=== PATIENT | female | born 1960 | race Caucasian/White ===

== ENCOUNTER 2023-03-22 21:20 | Inpatient (IN) | payer MEDICARE, OTHER, SELFPAY ==
[2023-03-22 15:09] VITALS: BMI 35.8
[2023-03-22 15:15] VITALS: BP 107/52
--- NOTE | 2023-03-22 15:22 | ED.GENMED ---
History of Present Illness
General
Chief Complaint: Vaginal Bleeding
Source: patient
Exam Limitations: none
Time Seen by Provider: 03/22/23 15:20
History of Present Illness
History of Present Illness:
62-year-old female presents from [facility] with complaints of vaginal bleeding. Patient has a history of uterine cancer that was treated. She is status post hysterectomy. She notes a pressure in the lower abdomen that feels
like right before she urinates and when she urinates she passes clots and large amount of blood. No fever. She has a history of UTIs and cystitis. The pain in the lower abdomen is both sides does not radiate to the back. No vomiting. She is an
insulin-dependent diabetic. She is on Brilinta. She is never been here before.
Phy Exam
Physical Exam
Physical Exam:
General: Well-appearing female no acute respiratory distress
HEENT: Normocephalic atraumatic
Heart: Regular rate and rhythm no murmurs
Lungs: Clear to auscultation bilaterally no wheezing
exam: There is clots noted in the diaper. No active vaginal bleeding. No active bleeding noticed otherwise.
Extremities: Bilateral lower extremities with below the knee amputations.
Abdomen is soft nontender nondistended no guarding rebound normal bowel sounds
Course
Orders/Labs/Results
Orders:
Orders
03/22/23 15:30
Bladder Scan- Treatment ONCE
03/22/23 15:31
CT Abd/pel Without Iv Or Oral Urgent
Comment:
Reason For Exam: hematuria
03/22/23 15:46
Complete Blood Count/With Diff Urgent
Comprehensive Metabolic Panel Urgent
PTT Urgent
Prothrombin Time Urgent
03/22/23 15:48
Tramadol HCl [Ultram] 50 mg PO NOW STA
03/22/23 16:37
Urinalysis Reflex To Culture Urgent
Date Specimen was Collected: 03/22/23
Time Specimen was Collected: 16:36
Urine Microscopic Reflex Cult Urgent
03/22/23 18:31
CBI- Treatment PRN
Solution: saline
Irrigate to Clear?: Yes
Abnormal Lab Results
03/22/23 03/22/23
15:46 16:37
RBC 3.42 L 10^6/uL
(4.20-5.40)
Hgb 10.2 L g/dL
(12.0-16.0)
Hct 30.6 L %
(37.0-47.0)
MPV 10.6 H fL
(7.4-10.4)
Abs Immat Gran (auto) 0.1 H 10^3/uL
(0-0.05)
Absolute Neuts (auto) 6.8 H 10^3/uL
(1.4-6.5)
Immature Gran % 0.6 H %
(0-0.5)
Lymphocytes % 16.9 L %
(20.5-51.1)
Sodium 132 L mmol/L
(135-145)
Chloride 96 L mmol/L
(98-107)
BUN 19 H mg/dl
(7-17)
Glucose 282 H mg/dl
(70-99)
Albumin 3.4 L g/dl
(3.5-5.0)
Urine Ketones Trace A
(Negative)
Ur Occult Blood Reflex 4+ A
(Negative)
Urine RBC >100 A /HPF
(0-2)
Urine Glucose Trace A
(Negative)
Urine Albumin (Reflex) 3+ A
(Neg - Trace)
03/22/23 15:46
03/22/23 15:46
Vital Signs
Initial and Last Documented VS:
Initial Vital Signs
Temp Pulse Resp BP Pulse Ox
97.8 F 80 14 107/52 97
03/22/23 15:15 03/22/23 15:15 03/22/23 15:15 03/22/23 15:15 03/22/23 15:15
Last Documented Vital Signs
Temp Pulse Resp BP Pulse Ox
97.8 F 80 14 110/63 96
03/22/23 15:15 03/22/23 17:45 03/22/23 17:45 03/22/23 16:00 03/22/23 17:30
MDM/Problems Addressed
Differential Diagnosis Includes:
Patient has urinary symptoms and hematuria. Question possible cystitis versus kidney stone. History of uterine cancer but status post hysterectomy.
Will check labs coags urinalysis and bladder scan. Also performed CT of the abdomen and pelvis
*Critical Care Note
Total Time (30-74mins, 75-104mins- exclusive of procedures): Not Applicable
Update Note
Update Note:
CT was negative for acute finding. Patient continued to pass clots while here. Discussed findings with urology. There is no infection in the urine that is visible. Given ongoing passage of clots, urology recommended CBI and admission for
possible cystoscopy in the morning
ED Attending Note
-
Portions of this chart may have been created with voice recognition software.� Occasional wrong word or��sound alike� substitutions may have occurred due to the inherent limitations of voice recognition software.
Discharge Plan
Departure
Patient Disposition: Admit
Date of Disposition: 03/22/23
Time of Disposition: 19:33
Admit to: Med/Surg
Presentation/result/management discussed w/ accepting MD/DO: Hospitalist
Discharge Problem:
Hematuria
Prescriptions:
No Action
sennosides [senna] 8.6 mg Tablet
17.2 mg PO HS
acetaminophen [Tylenol] 325 mg Tablet
650 mg PO Q6HPRN PRN (Reason: mild pain)
polyethylene glycol 3350 [Miralax] 17 gram Powder In Packet
17 g PO [id number] PRN (Reason: CONSTIPATION)
gabapentin 400 mg Capsule
800 mg PO TID
sertraline 100 mg Tablet
100 mg PO DAILY
loperamide 2 mg Tablet
2 mg PO Q6HPRN PRN (Reason: diarrhea)
dextromethorphan-guaifenesin [Tussin DM] 10-100 mg/5 mL Syrup
10 ml PO Q4HPRN PRN (Reason: COUGH)
tramadol 50 mg Tablet
50 mg PO Q6HPRN PRN (Reason: SEVERE PAIN)
zinc oxide 20 % Ointment
1 applic TOPICAL TID
magnesium hydroxide [Milk of Magnesia] 400 mg/5 mL Suspension
2,400 mg PO [id number] PRN (Reason: if no bm by 3rd day)
bisacodyl [Dulcolax (bisacodyl)] 10 mg Suppository
10 mg WA DAILYPRN PRN (Reason: if no bm aftr mom)
ferrous sulfate 325 mg (65 mg iron) Tablet
325 mg PO DAILY
metformin 1,000 mg Tablet
1,000 mg PO BID
Fleet Enema 19-7 gram/118 mL Enema
118 ml WA DAILYPRN PRN (Reason: if no bm aftr dulcolax)
docusate sodium [Colace] 100 mg Capsule
200 mg PO DAILY
aspirin 81 mg Tablet,Chewable
81 mg PO DAILY
vitamin B complex [B Complete] Tablet
1 tab PO DAILY
levothyroxine [Synthroid] 200 mcg Tablet
200 mcg PO DAILY
lisinopril 2.5 mg Tablet
2.5 mg PO DAILY
insulin lispro [Humalog KwikPen Insulin] 100 unit/mL Insulin Pen
4 unit SC AC
magnesium L-lactate 84 mg Tablet Extended Release
168 mg PO BID
duloxetine [Cymbalta] 60 mg Capsule,Delayed Release(Dr/Ec)
60 mg PO DAILY
omeprazole 20 mg Tablet,Delayed Release (Dr/Ec)
20 mg PO DAILY
cholecalciferol (vitamin D3) [Vitamin D3] 50 mcg (2,000 unit) Capsule
50 mcg PO DAILY
Brilinta 90 mg Tablet
90 mg PO BID
Referrals:
Connor Mcmillan DO [Family Provider] -
Interventions
Interventions:
*Risk Screen - Suicide Last Done: 03/22/23 15:24
*Neglect/Abuse Screening Last Done: 03/22/23 15:24
ED- Fall Risk Assessment Last Done: 03/22/23 15:27
ED-Female Genitourinary Assessment Last Done: 03/22/23 16:03
[2023-03-22 15:52] LABS: % Basophils 0.8 % (0-2); % Eosinophils 4.2 % (0-6); % Immature Granulocytes 0.6 % (0-0.5); % Lymphocytes 16.9 % (20.5-51.1); % Neutrophils 71.5 % (42.2-75.2); Absolute Basophils 0.1 10^3/uL (0-0.2); Absolute Eosinophils 0.4 10^3/uL (0-0.7); Absolute Immature Granulocytes 0.1 10^3/uL (0-0.05); Absolute Lymphocytes 1.6 10^3/uL (1.2-3.4); Absolute Monocytes 0.6 10^3/uL (0.1-0.6); Absolute Neutrophils 6.8 10^3/uL (1.4-6.5); Hematocrit 30.6 % (37.0-47.0); Hemoglobin 10.2 g/dL (12.0-16.0); Mean Corp Hgb Conc. 33.3 g/dL (33.0-37.0); Mean Corpuscular Hgb 29.8 pg (27.0-31.0); Mean Corpuscular Volume 89.5 fL (81.0-99.0); Mean Platelet Volume 10.6 fL (7.4-10.4); Nucleated Red Blood Cells % 0 %; Platelet Count 234 10^3/uL (130-400); Red Blood Cell Count 3.42 10^6/uL (4.20-5.40); Red Cell Dist. Width 14.1 % (11.5-14.5); White Blood Cell Count 9.5 10^3/uL (4.8-10.8)
[2023-03-22 16:00] VITALS: BP 110/63
[2023-03-22 16:04] LABS: APTT 28.9 Sec (23.4-35.0); INR 1.08; PT 14.3 Sec (11.4-14.6)
[2023-03-22 16:11] LABS: ALT (SGPT) 14 U/L (0-35); AST (SGOT) 17 U/L (14-36); Albumin 3.4 g/dl (3.5-5.0); Alkaline Phosphatase 110 U/L (38-126); Blood Urea Nitrogen 19 mg/dl (7-17); Calcium 8.5 mg/dl (8.4-10.2); Carbon Dioxide 25 mmol/L (22-30); Chloride 96 mmol/L (98-107); Estimated Creatinine Clearance 108 ml/min; Glucose 282 mg/dl (70-99); Sodium 132 mmol/L (135-145); Total Bilirubin 0.3 mg/dl (0.2-1.3); Total Protein 6.4 g/dl (6.3-8.2); eGFR > 60.00
[2023-03-22] MEDS: ULTRAM 50 MG PO (16:23)
[2023-03-22 16:45] LABS: Urine Albumin 3+ (Neg - Trace); Urine Bilirubin Negative (Negative); Urine Character Bloody (Clear); Urine Color Red; Urine Glucose Trace (Negative); Urine Ketone Trace (Negative); Urine Leukocyte Negative (Negative); Urine Nitrite Negative (Negative); Urine Occult Blood 4+ (Negative); Urine Urobilinogen Negative (Neg - 1+)
[2023-03-22 17:01] LABS: Urine Red Blood Cell >100 /HPF (0-2)
--- NOTE | 2023-03-22 20:27 | HPS.HSE ---
Family Physician
-
Family Physician: Connor Mcmillan, DO
Chief Complaint
-
Recurrent gross hematuria
History of Present Illness
Very pleasant 68-year-old female with multiple comorbidities including diabetes and peripheral vascular disease status bilateral below-knee amputation and recurrent hematuria. Transferred to the hospital from [facility] as was recently
discharged back from [place] from her second visit to [place] for recurrent gross hematuria.
Other workup today and initially they been limited on the UTI and treated and discharged but now having another episode and did not want to go back to [place].
Admit the hematuria is painless, denies any weight change, no pyuria admit occasional pressure sensation suprapubic.
No fever or chill or cough or congestion, no changes stool color, no fresh rectal bleed or nausea or vomiting or hematemesis.
She takes aspirin and Brilinta for peripheral vascular disease and stent placed in the left carotid 4 years ago.
She is awake, alert and oriented x 3 and holds appropriate conversation.
Workup in the ER showed gross hematuria, started on CBI and urology contacted and recommended continued CBI and n.p.o. after midnight see planning endoscopy in the morning.
Accompanied by the at the bedside.
Urinalysis showed no evidence of UTI but showed gross hematuria.
Medical History
Past Medical History
Past Medical History: Reports Other
Additional Past Medical History:
Past medical history reviewed:
Diabetes mellitus
Peripheral vascular disease status post bilateral knee amputation as well as stent in the left carotid artery.
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
Ambulatory dysfunction
Hypertension
Mood disorder
GERD
Surgical history:
Bilateral below-knee amputation
Left carotid artery stenting.
Social history: Been [facility] and another [facility] for the last year and a half, denies smoking alcohol use.
Family history: Positive for diabetes, hypertension, coronary artery disease
Past Surgical History: Reports Other
Social History
Unable to obtain full social history at this time due to: Other
Employment: Other
Family History
Family History: Other
Allergies / Home Medications
Allergies reflects when Allergies were last updated in [facility].
Home Medications with original date entered in [facility]
Allergy/Medication List:
Allergies
Allergy/AdvReac Type Severity Reaction Status Date / Time
atorvastatin Allergy Unknown Verified 03/22/23 16:01
cefazolin Allergy Unknown Verified 03/22/23 16:01
ciprofloxacin Allergy Unknown Verified 03/22/23 16:01
clindamycin Allergy Unknown Verified 03/22/23 16:01
oxycodone Allergy Unknown Verified 03/22/23 16:01
Home Medications
acetaminophen 325 mg tablet (Tylenol) 650 mg PO Q6HPRN PRN mild pain 03/22/23
aspirin 81 mg chewable tablet 81 mg PO DAILY 03/22/23
bisacodyl 10 mg rectal suppository (Dulcolax (bisacodyl)) 10 mg MI DAILYPRN PRN if no bm aftr mom 03/22/23
cholecalciferol (vitamin D3) 50 mcg (2,000 unit) capsule (Vitamin D3) 50 mcg PO DAILY 03/22/23
dextromethorphan-guaifenesin 10 mg-100 mg/5 mL oral syrup (Tussin DM) 10 ml PO Q4HPRN PRN COUGH 03/22/23
docusate sodium 100 mg capsule (Colace) 200 mg PO DAILY 03/22/23
duloxetine 60 mg capsule,delayed release (Cymbalta) 60 mg PO DAILY 03/22/23
ferrous sulfate 325 mg (65 mg iron) tablet 325 mg PO DAILY 03/22/23
gabapentin 400 mg capsule 800 mg PO TID 03/22/23
insulin lispro 100 unit/mL subcutaneous pen (Humalog KwikPen (U-100) Insulin) 4 unit SC AC 03/22/23
levothyroxine 200 mcg tablet (Synthroid) 200 mcg PO DAILY 03/22/23
lisinopril 2.5 mg tablet 2.5 mg PO DAILY 03/22/23
loperamide 2 mg tablet 2 mg PO Q6HPRN PRN diarrhea 03/22/23
magnesium L-lactate 84 mg tablet,extended release 168 mg PO BID 03/22/23
magnesium hydroxide 400 mg/5 mL oral suspension (Milk of Magnesia) 2,400 mg PO [id number] PRN if no bm by 3rd day 03/22/23
metformin 1,000 mg tablet 1,000 mg PO BID 03/22/23
omeprazole 20 mg tablet,delayed release 20 mg PO DAILY 03/22/23
polyethylene glycol 3350 17 gram oral powder packet (Miralax) 17 g PO [id number] PRN CONSTIPATION 03/22/23
sennosides 8.6 mg tablet (senna) 17.2 mg PO HS 03/22/23
sertraline 100 mg tablet 100 mg PO DAILY 03/22/23
sodium phosphates 19 gram-7 gram/118 mL enema (Fleet Enema) 118 ml MI DAILYPRN PRN if no bm aftr dulcolax 03/22/23
ticagrelor 90 mg tablet (Brilinta) 90 mg PO BID 03/22/23
tramadol 50 mg tablet 50 mg PO Q6HPRN PRN SEVERE PAIN 03/22/23
vitamin B complex 1 tab PO DAILY 03/22/23
zinc oxide 20 % topical ointment 1 applic topical TID GROIN 03/22/23
Review of Systems
-
A 12 point ROS was completed and negative except as noted: Yes
Physical Exam
Vital Signs
Vital Signs
Temp Pulse Resp BP Pulse Ox
97.8 F 80 14 110/63 96
03/22/23 15:15 03/22/23 17:45 03/22/23 17:45 03/22/23 16:00 03/22/23 17:30
physical exam:
General: Awake, alert and oriented x3, not in distress and holds appropriate conversation.
HEENT: Poor dentition no active discharge, ecchymosis or bruising, moist lips, tongue and mucous membrane.
Eyes: No discharge or red conjunctiva, no nystagmus, pupils are reactive and equal
Neck:Supple, no JVD no bruit no goiter.
Respiratory: Normal AP contour and diameter, normal chest wall movement, normal respiratory effort, no respiratory distress,
Lungs: Good air entry bilaterally, no wheezing or rhonchi, no rales or crackles
Heart: S1, S2 regular, normal rate, no added sound.
Gastrointestinal: Positive bowel sounds, soft, nontender, no guarding or rigidity or organomegaly
Musculoskeletal: , no chest wall abnormality or tenderness. All joints and extremities have good range of motion, no muscle tenderness or any joint swelling or tenderness.
Extremities: Bilateral below-knee amputation, stump site clean. No pitting edema, good peripheral pulses, good range of motion
Skin: Warm and dry, no ulceration, normal color.
Neurological: Awake, alert and oriented x3, no facial droop, speech clear and comprehensive, good muscle tone, moves extremities
Psychiatric: Normal mood, normal thought and judgment, normal affect,
Physical Exam
General: Other
Laboratory Results
-
03/22/23 15:46
03/22/23 15:46
Laboratory Results
PT 14.3 Sec (11.4-14.6) 03/22/23 15:46
INR 1.08 03/22/23 15:46
APTT 28.9 Sec (23.4-35.0) 03/22/23 15:46
Total Bilirubin 0.3 mg/dl (0.2-1.3) 03/22/23 15:46
AST 17 U/L (14-36) 03/22/23 15:46
ALT 14 U/L (0-35) 03/22/23 15:46
Alkaline Phosphatase 110 U/L (38-126) 03/22/23 15:46
CT abdomen and pelvis:
1). There are no renal or ureteral calculi. There is no hydronephrosis or hydroureter. The kidneys are normal
2). Cholelithiasis
Data Reviewed
-
CT Scan: Image Personally Visualized and interpreted, Discussed with Patient and Discussed with Family
Lab Data: Labs Reviewed by me, Discussed with Patient and Discussed with Family
Impression/Plan
-
IMPRESSION:
62-year-old female sent from [facility] for recurrent hematuria and this is her third episode, the first 2 she was in [place] other than UTI no other findings appreciated according to the patient and family.
Recurrent gross hematuria, urinalysis showed no evidence of UTI, other causes may need to be considered. No mass seen on the CAT scan.
Hyponatremia
Anemia with hemoglobin around 10.6 with unknown baseline
Hyponatremia sodium 132
Diabetes mellitus on insulin and metformin
Mild protein caloric malnutrition albumin is 3.4
Peripheral vascular disease
Ambulatory dysfunction
PLAN:
Continue CBI for now
Workups reviewed
Hold aspirin and Brilinta as well as stent of the reason for the aspirin Brilinta was stent placed in left carotid was 4 years ago.
Get a urology consult
Urology planning cystoscopy tomorrow therefore keep the patient n.p.o. after midnight
Hold metformin continue insulin with meal
Glucoscan
Recheck lab
We need the records from [place] as she never been here.
Continue her Ultram as usually keep her pain and discomfort controlled while continue senna and Colace.
All discussed with the patient in detail
Discussed with her
CODE STATUS full code
DVT prophylaxis not indicated as she has a below-knee amputation and hold off anticoagulation because of the gross hematuria.
[2023-03-22 21:20] VITALS: BMI 35.8
[2023-03-22 22:11] LABS: Glucose - Point of Care 137 mg/dl (70-99)
[2023-03-22] MEDS: SENOKOT 17.1999999999999993 MG PO (23:48)
[2023-03-22] MEDS: NEURONTIN 800 MG PO (23:48)
[2023-03-22] MEDS: ZINC OXIDE OINTMENT TOPICAL ×2 (23:49→23:55)
[2023-03-23] VITALS (23 sets, daily range): BP systolic 99–137; BP diastolic 54–68; BMI 35.7
[2023-03-23 05:44] LABS: Hematocrit 29.4 % (37.0-47.0); Hemoglobin 9.6 g/dL (12.0-16.0); Mean Corp Hgb Conc. 32.7 g/dL (33.0-37.0); Mean Corpuscular Hgb 30.1 pg (27.0-31.0); Mean Corpuscular Volume 92.2 fL (81.0-99.0); Mean Platelet Volume 11.1 fL (7.4-10.4); Platelet Count 230 10^3/uL (130-400); Red Blood Cell Count 3.19 10^6/uL (4.20-5.40); Red Cell Dist. Width 14.4 % (11.5-14.5); White Blood Cell Count 10.2 10^3/uL (4.8-10.8)
[2023-03-23 05:57] LABS: Blood Urea Nitrogen 23 mg/dl (7-17); Carbon Dioxide 26 mmol/L (22-30); Chloride 97 mmol/L (98-107); Estimated Creatinine Clearance 108 ml/min; Glucose 191 mg/dl (70-99); Magnesium 1.6 mg/dl (1.6-2.3); Potassium 4.2 mmol/L (3.5-5.1); Sodium 134 mmol/L (135-145); eGFR > 60.00
[2023-03-23 06:28] LABS: TSH 0.36 uIU/ml (0.47-4.68)
--- NOTE | 2023-03-23 07:32 | CON.MD ---
Consultation - Medical
-
see dictated note
pt with hx of uterine cancer and subsequent radiation 10 years ago
multiple med problems inlcuding bilateral le amputations
all care thru [facility]
has had hematuria since dec- 2 admits to [facility]- denies any urologic eval- said she had ct's and told they were normal- treated with antibx
brought to ER yesterday from [facility]- no sx's- just again noting blood
ct scan performed- read as normal- but ? bladder base mass vs clot
pt has been on asa and brilinta
currently with 18 uzbek 3 wa- cbi at moderate rate- urine unger- hand irrigated- no clots
plan
continue cbi
hold blood thinners
trend hgb- transfuse prn
plan for cysto at some point mid week after as least partial wash out of brilinta
[2023-03-23 10:41] LABS: Glucose - Point of Care 180 mg/dl (70-99)
[2023-03-23] MEDS: NOVOLOG FLEXPEN-MODERATE RESISTANCE SC (10:41)
[2023-03-23] MEDS: NOVOLOG FLEXPEN SC (10:41)
[2023-03-23] MEDS: NOVOLOG FLEXPEN-MODERATE RESISTANCE 1 UNITS SC ×2 (10:41→17:33)
[2023-03-23] MEDS: NOVOLOG FLEXPEN 4 UNITS SC ×2 (10:42→17:32)
[2023-03-23] MEDS: NEURONTIN 800 MG PO ×3 (10:42→21:56)
[2023-03-23] MEDS: COLACE 200 MG PO (10:42)
[2023-03-23] MEDS: SYNTHROID 200 MCG PO (10:42)
[2023-03-23] MEDS: PROTONIX 40 MG PO (10:42)
[2023-03-23] MEDS: ZESTRIL 2.5 MG PO (10:42)
[2023-03-23] MEDS: CYMBALTA DELAYED RELEASE 60 MG PO (10:42)
[2023-03-23] MEDS: ZINC OXIDE OINTMENT 1 APPLIC TOPICAL ×3 (10:43→21:56)
--- NOTE | 2023-03-23 11:00 | PTCARENOTE ---
pt wakes to name. drowsy. states slight pressure /cramping in abd. cbi in place running with pink and some clots . jon care done.
[2023-03-23] MEDS: VALIUM INJECTION 5 MG IV (12:39)
--- NOTE | 2023-03-23 13:02 | CM ---
CM reviewed medical records. Patient is LTC at [facility]. Plan to return on discharge.
PLAN: [facility], LTC
--- NOTE | 2023-03-23 14:12 | W.PN.HOSP.TC ---
Today's Communication/Plan
-
Advance diet
Continue bladder hydration
Assessment / Plan
Assessment / Plan
62-year-old female with recurrent hematuria, this is her third episode, the first 2 she was seen at [place].
Active issues:
1. Recurrent gross hematuria, urinalysis showed no evidence of UTI, other causes may need to be considered.� No mass seen on the CAT scan.
Patient seen by Urology. Recommendations are:
'continue cbi
hold blood thinners
trend hgb- transfuse prn
plan for cysto at some point mid week after as least partial wash out of brilinta'
2. Hyponatremia - resolved, advance diet
3. Anemia with hemoglobin around 10.6 with unknown baseline
Follow with H/H Q6
4. Diabetes mellitus on insulin and metformin
Hold metformin continue insulin with meals
5. Mild protein caloric malnutrition despite obesity, albumin is 3.4
Encourage nutritional supplements as tolerated
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
6. Peripheral vascular disease - chronic issue
7. Ambulatory dysfunction - PT eval
Continue her Ultram as usually keep her pain and discomfort controlled while continue senna and Colace.
CODE STATUS full code
DVT prophylaxis not indicated, hold off anticoagulation because of the gross hematuria.
Anticipated Discharge: 24 - 48 hours
Subjective/Interval History
-
Date of Service: March 23, 2023
No new problems
Objective Data
-
Labs:
Laboratory Results
03/23/23
05:34
WBC 10.2
Hgb 9.6 L
Hct 29.4 L
Plt Count 230
Sodium 134 L
Potassium 4.2
Chloride 97 L
Carbon Dioxide 26
BUN 23 H
Creatinine 0.6
Glucose 191 H
Calcium 9.0
Vital Signs:
Vital Signs
Temp Pulse Resp BP Pulse Ox
98.3 F 81 18 103/68 100
03/23/23 11:00 03/23/23 14:00 03/23/23 06:11 03/23/23 13:00 03/23/23 14:00
I&O
03/22/23 03/23/23 03/24/23
06:59 06:59 06:59
Output Total 400 / 400 -400 / -400
Balance -400 / -400 400 / 400
Review of Systems
-
History Source: Patient
All other systems: Reviewed and negative
Physical Exam
-
General: Well Developed, Well Nourished, No Apparent Distress, Comfortable and Obese
HEENT: Normocephalic, Atraumatic, Nose Appears Normal and Ears Appear Normal; Negative Good Dentition
Respiratory: Clear to Auscultation
Cardiac: Regular Rhythm and S1/S2
GI: Soft and Nondistended
Musculoskeletal: No Clubbing, No Cyanosis and Other (bilateral amputees)
Skin: Warm and Dry; Negative Rash
Neuro: Awake, Alert and Oriented
Psych: Calm
Data Reviewed
-
Labs: Labs Reviewed by me
[2023-03-23 14:45] LABS: Glycohemoglobin (HgbA1c) 7.5 % (4.0-5.6)
[2023-03-23 15:21] LABS: Hematocrit 27.6 % (37.0-47.0)
[2023-03-23 16:04] LABS: Glucose - Point of Care 181 mg/dl (70-99)
--- NOTE | 2023-03-23 18:32 | PTCARENOTE ---
report sent to floor pt transferred with all belongings.
--- NOTE | 2023-03-23 18:38 | PTCARENOTE ---
Received pt from ED, VSS. CBI with jon draining punch colored urine. Oriented to room, call velasco in reach.
[2023-03-23 20:58] LABS: Hemoglobin 9.2 g/dL (12.0-16.0)
[2023-03-23 21:01] LABS: Glucose - Point of Care 196 mg/dl (70-99)
[2023-03-23] MEDS: SENOKOT 17.1999999999999993 MG PO (21:57)
[2023-03-24 03:08] LABS: Hematocrit 26.3 % (37.0-47.0); Hemoglobin 8.7 g/dL (12.0-16.0); Mean Corp Hgb Conc. 33.1 g/dL (33.0-37.0); Mean Corpuscular Hgb 30.1 pg (27.0-31.0); Platelet Count 201 10^3/uL (130-400); Red Blood Cell Count 2.89 10^6/uL (4.20-5.40); Red Cell Dist. Width 14.1 % (11.5-14.5)
[2023-03-24 03:25] LABS: Blood Urea Nitrogen 16 mg/dl (7-17); Calcium 8.4 mg/dl (8.4-10.2); Carbon Dioxide 27 mmol/L (22-30); Chloride 99 mmol/L (98-107); Estimated Creatinine Clearance 108 ml/min; Glucose 201 mg/dl (70-99); Potassium 3.9 mmol/L (3.5-5.1); Sodium 131 mmol/L (135-145); eGFR > 60.00
[2023-03-24] MEDS: SYNTHROID 200 MCG PO (06:16)
--- NOTE | 2023-03-24 06:48 | W.PN.URO.CBU ---
Today's Communication / Plan
-
continue cbi
track hgb
Assessment / Plan
-
gross hematuria
improved with hand irrigation/cbi and hold of asa and brilinta
hgb down=- pt is chronically anemic- will track and would transfuse as neded
ucx pending- although did not appear to be UTI
as this is pt's 3rd hospital admit for hematuria- 2x at [facility] where it appears no sig urologic eval was performed- i rec continued hospital management with cbi/transfusion and medical optimatization with plan for OR on for
cysto/fulguration and bx with continued hold of both asa and brilinta
risks, benefits, alternatives and disabilities reviewed with patient
Diagnosis
-
Date of Service: March 24, 2023
-
Patient Diagnosis:
gross hematuria
Subjective
-
pt awake and alert
urine almost clear on light drip cbi
slight drop in hgb
Objective
-
Vital Signs
Temp Pulse Resp BP Pulse Ox
98.3 F 83 16 114/61 96
03/23/23 23:47 03/23/23 23:47 03/23/23 23:47 03/23/23 23:47 03/23/23 23:47
Intake and Output
03/22/23 03/23/23 03/24/23
06:59 06:59 06:59
Output Total 400 / 400 400 / 400
Balance -400 / -400 -400 / -400
Output:
True Urine Output from CBI 400 / 400 400 / 400
Laboratory Results
03/24/23 02:54
Review of Systems
-
Constitutional: Fatigue
Respiratory: No Symptoms
Cardiac: No Symptoms
Abdomen/GI: No Symptoms
: Other (jon)
Musculoskeletal: Muscle Stiffness
Physical Exam
-
General -no acute distress
Abdomen - obese, mild distension, nontender
Genitalia - [address]
[2023-03-24 07:15] VITALS: BP 124/57
[2023-03-24 07:57] LABS: Glucose - Point of Care 200 mg/dl (70-99)
[2023-03-24] MEDS: CYMBALTA DELAYED RELEASE 60 MG PO (08:46)
[2023-03-24] MEDS: NEURONTIN 800 MG PO ×3 (08:46→21:14)
[2023-03-24] MEDS: COLACE 200 MG PO (08:47)
[2023-03-24] MEDS: PROTONIX 40 MG PO (08:47)
[2023-03-24] MEDS: NOVOLOG FLEXPEN-MODERATE RESISTANCE 3 UNITS SC ×2 (08:47→17:28)
[2023-03-24] MEDS: ZESTRIL 2.5 MG PO (08:47)
[2023-03-24] MEDS: NOVOLOG FLEXPEN 4 UNITS SC ×2 (08:48→11:36)
[2023-03-24] MEDS: ZINC OXIDE OINTMENT 1 APPLIC TOPICAL ×3 (08:49→21:32)
[2023-03-24 11:26] LABS: Glucose - Point of Care 250 mg/dl (70-99)
[2023-03-24] MEDS: NOVOLOG FLEXPEN-MODERATE RESISTANCE 5 UNITS SC (11:36)
--- NOTE | 2023-03-24 12:04 | W.PN.HOSP.TC ---
Today's Communication/Plan
-
Cont CBI
Trend hgb daily
adjust insulin
Assessment / Plan
Assessment / Plan
62-year-old female with recurrent hematuria, this is her third episode, the first 2 she was seen at [place].
#Recurrent gross hematuria
#Mild acute blood loss anemia 2/2 above
urinalysis showed no evidence of UTI other causes may need to be considered.�
No mass seen on the CAT scan.
asa/brilinta on hold-awaiting washout
Plan for OR
Hgb from 10.2 to 8.7. Unknown baseline
Urology recs
#Hyponatremia - resolved, advance diet
#Diabetes mellitus
Hold metformin
continue insulin with meals increase dose to 5u
A1C 7.5
POC 200
#Mild protein caloric malnutrition
#Peripheral vascular disease - chronic issue
#Ambulatory dysfunction - PT eval
-Continue her Ultram as usually keep her pain and discomfort controlled while continue senna and Colace.
CODE STATUS full code
DVT prophylaxis BKA and unable to do chemical prophylaxis due to gross hematuria
Anticipated Discharge: > 48 hours
Subjective/Interval History
-
Date of Service: March 24, 2023
remains on CBI
urine clear
Objective Data
-
Labs:
Laboratory Results
03/24/23 03/24/23 03/24/23
02:45 02:54 08:45
WBC 9.0
Hgb Cancelled 8.7 L Cancelled
Hct Cancelled 26.3 L Cancelled
Plt Count 201
Sodium 131 L
Potassium 3.9
Chloride 99
Carbon Dioxide 27
BUN 16
Creatinine 0.5 L
Glucose 201 H
Calcium 8.4
Vital Signs:
Vital Signs
Temp Pulse Resp BP Pulse Ox
97.9 F 77 18 124/57 94
03/24/23 07:15 03/24/23 07:15 03/24/23 07:15 03/24/23 07:15 03/24/23 07:15
I&O
03/23/23 03/24/23 03/25/23
06:59 06:59 06:59
Output Total 400 / 400 400 / 400 1600 / 1600
Balance -400 / -400 -400 / -400 -1600 / -1600
Physical Exam
-
General: Well Developed, Well Nourished, No Apparent Distress, Comfortable and Obese
HEENT: Normocephalic, Atraumatic, Nose Appears Normal and Ears Appear Normal; Negative Good Dentition
Respiratory: Clear to Auscultation
Cardiac: Regular Rhythm and S1/S2
GI: Soft, Nontender, Nondistended and Normal Bowel Sounds
Genito-urinary: Continuous Bladder Irrigation
Musculoskeletal: No Clubbing, No Cyanosis and Other (bilateral amputees)
Skin: Warm and Dry; Negative Rash
Neuro: Awake, Alert and Oriented
Psych: Calm
Data Reviewed
-
Total Time Spent with Patient (in minutes): 54
--- NOTE | 2023-03-24 14:45 | CM ---
Patient seen bedside with spouse.
Per patient she has been at [facility] for over a year now due to b/l le amputations.
Per patient and the goal is for her to eventually go home.
Patient has b/l le prosthetics that she is learning to walk on.
Patient alert and oriented.
Per patient the plan is back to [facility] when stable.
Clinical updates sent via [facility].
Plan:[facility] when stable.
[facility]
report# [phone]
--- NOTE | 2023-03-24 14:53 | PN.CDI ---
CDI
- -
CDI:
Physician Documentation Request
Admit Date: 03/22/23 21:20
Dear Doctor Denny,
Please review the following and provide your response in the progress notes.
Clinical Indicators:
PN, 03/24
#Recurrent gross hematuria
#Mild acute blood loss anemia 2/2 above
#asa/brilinta on hold-awaiting washout
#Plan for OR
#Hgb from 10.2 to 8.7. Unknown baseline
Please clarify the relationship, if any, between these conditions:
Yes, Recurrent hematuria is enhanced by/contributed to/associated with/due to Brilinta/ASA.
No, Recurrent hematuria is enhanced by/contributed to/associated with/due to Brilinta/ASA but it is due to ___. (Please specify)
Unable to determine
Use of terms such as suspected, likely, concern for, or probable (associated with a specific diagnosis that is being evaluated, monitored, or treated as if it exists) are acceptable and can be coded in the inpatient setting, when documented at the
time of discharge.
Thank you,
Avril Christiansen RN BSN CCDS
CDI Specialist
please contact via tiger text
Please use your independent medical judgment in providing your response.
[2023-03-24 15:25] VITALS: BP 101/45
[2023-03-24 16:45] LABS: Glucose - Point of Care 211 mg/dl (70-99)
[2023-03-24] MEDS: NOVOLOG FLEXPEN 5 UNITS SC (17:28)
[2023-03-24] MEDS: SENOKOT 17.1999999999999993 MG PO (21:14)
[2023-03-24 21:53] LABS: Glucose - Point of Care 179 mg/dl (70-99)
[2023-03-24 23:18] VITALS: BP 122/54
[2023-03-25] MEDS: SYNTHROID 200 MCG PO (05:49)
[2023-03-25 07:10] VITALS: BP 114/57
[2023-03-25 07:26] LABS: Glucose - Point of Care 232 mg/dl (70-99)
[2023-03-25] MEDS: NOVOLOG FLEXPEN 5 UNITS SC ×2 (07:39→11:55)
[2023-03-25] MEDS: NOVOLOG FLEXPEN-MODERATE RESISTANCE 3 UNITS SC (07:39)
[2023-03-25] MEDS: PROTONIX 40 MG PO (07:40)
[2023-03-25] MEDS: ZESTRIL 2.5 MG PO (07:40)
[2023-03-25] MEDS: CYMBALTA DELAYED RELEASE 60 MG PO (07:41)
[2023-03-25] MEDS: NEURONTIN 800 MG PO ×3 (07:41→21:34)
[2023-03-25] MEDS: COLACE 200 MG PO (07:41)
[2023-03-25] MEDS: ZINC OXIDE OINTMENT 1 APPLIC TOPICAL ×3 (07:45→21:40)
--- NOTE | 2023-03-25 07:55 | W.PN.UPDATE ---
Update Note
Progress Note Update
pt asleep
urine clear
plan to track hgb and transfuse prn
OR
[2023-03-25 08:01] LABS: % Basophils 0.7 % (0-2); % Eosinophils 4.2 % (0-6); % Immature Granulocytes 0.5 % (0-0.5); % Lymphocytes 15.9 % (20.5-51.1); % Monocytes 6.6 % (1.7-9.3); % Neutrophils 72.1 % (42.2-75.2); Absolute Basophils 0.1 10^3/uL (0-0.2); Absolute Eosinophils 0.3 10^3/uL (0-0.7); Absolute Lymphocytes 1.2 10^3/uL (1.2-3.4); Absolute Monocytes 0.5 10^3/uL (0.1-0.6); Absolute Neutrophils 5.4 10^3/uL (1.4-6.5); Hematocrit 25.2 % (37.0-47.0); Hemoglobin 8.6 g/dL (12.0-16.0); Mean Corp Hgb Conc. 34.1 g/dL (33.0-37.0); Mean Corpuscular Hgb 30.2 pg (27.0-31.0); Mean Corpuscular Volume 88.4 fL (81.0-99.0); Mean Platelet Volume 10.8 fL (7.4-10.4); Nucleated Red Blood Cells % 0 %; Platelet Count 190 10^3/uL (130-400); Red Blood Cell Count 2.85 10^6/uL (4.20-5.40); Red Cell Dist. Width 14.1 % (11.5-14.5); White Blood Cell Count 7.4 10^3/uL (4.8-10.8)
[2023-03-25 08:57] LABS: Blood Urea Nitrogen 14 mg/dl (7-17); Calcium 8.8 mg/dl (8.4-10.2); Carbon Dioxide 30 mmol/L (22-30); Chloride 94 mmol/L (98-107); Estimated Creatinine Clearance 108 ml/min; Glucose 197 mg/dl (70-99); Potassium 3.8 mmol/L (3.5-5.1); Sodium 133 mmol/L (135-145); eGFR > 60.00
[2023-03-25 11:54] LABS: Glucose - Point of Care 315 mg/dl (70-99)
[2023-03-25] MEDS: NOVOLOG FLEXPEN-MODERATE RESISTANCE 7 UNITS SC (11:55)
--- NOTE | 2023-03-25 12:37 | PN.CDI ---
CDI
- -
CDI:
Physician Documentation Request
Admit Date: 03/22/23 21:20
Dear Doctor Denny,
Please review the following and provide your response in the progress notes.
Clinical Indicators:
H+P, 03/22
#Mild protein caloric malnutrition albumin is 3.4
PN, 03/24
#Mild protein caloric malnutrition
Based on the information above and ASPEN criteria, please provide additional indicators that support malnutrition
Mild Protein Calorie Malnutrition (Please provide indicators)
After careful study, malnutrition has been ruled out
Other
[place] Criteria ([facility]ist 2017)
2 or more criteria must be present for either
non severe or severe malnutrition
Note that the criteria differs related to the
presence of an acute or chronic illness
Acute Illness Chronic Illness
Energy Intake Non Severe: <75% for >7 days Non Severe: <75% for >1 month
Severe: <50% for >5 days Severe: <75% for >1 month
Weight Loss Non Severe: 1-2% over 1 week Non Severe: 5% over 1 month
5% over 1 month 7.5% over 3 months
7.5% over 3 months 10% over 6 months
1 year N/A 20% over 1 year
Severe: >2% over 1 week Severe: >5% over 1 month
>5% over 1 month >7.5% over 3 months
>7.5% over 3 months >10% over 6 months
1 year N/A >20% over 1 year
Body Fat Non Severe: Mild Decrease Non Severe: Mild Loss
Severe: Moderate Decrease Severe: Severe Loss
Muscle Mass Non Severe: Mild Decrease Non Severe: Mild Loss
Severe: Moderate Decrease Severe: Severe Loss
Use of terms such as suspected, likely, concern for, or probable (associated with a specific diagnosis that is being evaluated, monitored, or treated as if it exists) are acceptable and can be coded in the inpatient setting, when documented at the
time of discharge.
Thank you,
Avril Christiansen RN BSN CCDS
CDI Specialist
please contact via tiger text
Please use your independent medical judgment in providing your response.
--- NOTE | 2023-03-25 13:37 | W.PN.HOSP.TC ---
Today's Communication/Plan
-
check anemia panel
check FT4
Cont CBI
adjust insulin
Assessment / Plan
Assessment / Plan
62-year-old female with recurrent hematuria, this is her third episode, the first 2 she was seen at [place].
#Recurrent gross hematuria likely worsened due to ASA/Brillinta
#Mild acute blood loss anemia 2/2 above
#Normocytic anemia
urinalysis showed no evidence of UTI other causes may need to be considered.�
No mass seen on the CAT scan.
asa/brilinta on hold-awaiting washout
Plan for OR
Hgb from 10.2 to 8.7. Unknown baseline
Check anemia panel
Urology recs
#Hyponatremia - resolved, advance diet
#Diabetes mellitus
Hold metformin
continue insulin with meals increase dose to 7u
A1C 7.5
POC 232
#suspected chronic Mild protein caloric malnutrition
#Peripheral vascular disease s/p BL BKA
#Ambulatory dysfunction - PT eval
-Continue her Ultram as usually keep her pain and discomfort controlled while continue senna and Colace.
#Hypothyroidism-TSH low. Check FT4. May need to decrease synthroid dose.
CODE STATUS full code
DVT prophylaxis BKA and unable to do chemical prophylaxis due to gross hematuria
states received all her care at [place] but want to transfer over to now.
Anticipated Discharge: > 48 hours
Subjective/Interval History
-
Date of Service: March 25, 2023
remains on cbi
no rachel/gross hematuria
Objective Data
-
Labs:
Laboratory Results
03/25/23
07:20
WBC 7.4
Hgb 8.6 L
Hct 25.2 L
Plt Count 190
Sodium 133 L
Potassium 3.8
Chloride 94 L
Carbon Dioxide 30
BUN 14
Creatinine 0.5 L
Glucose 197 H
Calcium 8.8
Vital Signs:
Vital Signs
Temp Pulse Resp BP Pulse Ox
97.6 F 72 14 114/57 96
03/25/23 07:10 03/25/23 07:40 03/25/23 07:10 03/25/23 07:40 03/25/23 07:10
I&O
03/24/23 03/25/23 03/26/23
06:59 06:59 06:59
Intake Total 960 / 960 1919 / 1920
Output Total 400 / 400 4900 / 4900 2149 / 2149
Balance 560 / 560 -2980 / -2980 -2150 / -0
Physical Exam
-
General: Well Developed, Well Nourished, No Apparent Distress, Comfortable and Obese
HEENT: Normocephalic, Atraumatic, Nose Appears Normal and Ears Appear Normal; Negative Good Dentition
Respiratory: Clear to Auscultation
Cardiac: Regular Rhythm and S1/S2
GI: Soft, Nontender, Nondistended and Normal Bowel Sounds
Genito-urinary: Continuous Bladder Irrigation
Musculoskeletal: No Clubbing, No Cyanosis and Other (bilateral amputees)
Skin: Warm and Dry; Negative Rash
Neuro: Awake, Alert and Oriented
Psych: Calm
[2023-03-25 15:10] VITALS: BP 112/58
[2023-03-25 15:11] LABS: Free T4 1.59 ng/dl (0.78-2.19)
[2023-03-25 15:31] LABS: Iron 46 ug/dl (37-170)
[2023-03-25 15:41] LABS: Percent Saturation 16 % (20-50); Total Iron Binding Capacity 286 ug/dl (265-497)
[2023-03-25 16:41] LABS: Glucose - Point of Care 190 mg/dl (70-99)
[2023-03-25] MEDS: NOVOLOG FLEXPEN 7 UNITS SC (16:54)
[2023-03-25] MEDS: NOVOLOG FLEXPEN-MODERATE RESISTANCE 1 UNITS SC (16:54)
[2023-03-25 17:24] LABS: Folate > 20.0 ng/ml (2.76-20); Vitamin B12 685 pg/ml (239-931)
[2023-03-25] MEDS: SENOKOT 17.1999999999999993 MG PO (21:33)
[2023-03-25 21:53] LABS: Glucose - Point of Care 162 mg/dl (70-99)
[2023-03-25 23:27] VITALS: BP 113/62
[2023-03-26 07:10] VITALS: BP 115/58
--- NOTE | 2023-03-26 07:12 | W.PN.URO.CBU ---
Today's Communication / Plan
-
OR tomorrow
Assessment / Plan
-
gross hematuria
improved with hand irrigation/cbi and hold of asa and brilinta
hgb down=- pt is chronically anemic- will track and would transfuse as needed
ucx was not sent
as this is pt's 3rd hospital admit for hematuria- 2x at [facility] where it appears no sig urologic eval was performed- i rec continued hospital management with cbi/transfusion and medical optimization with plan for OR on tomorrow for
cysto/fulguration and bx with continued hold of both asa and brilinta
risks, benefits, alternatives and disabilities reviewed with patient again today
npo after midnight
will discuss pre-op antibx options with med team given allergies
Diagnosis
-
Date of Service: March 26, 2023
-
Patient Diagnosis:
gross hematuria
Subjective
-
pt stable
urine light yellow on minimal cbi
hgb pending
Objective
-
Vital Signs
Temp Pulse Resp BP Pulse Ox
98.7 F 70 18 113/62 100
03/25/23 23:27 03/25/23 23:27 03/25/23 23:27 03/25/23 23:27 03/25/23 15:10
Intake and Output
03/25/23 03/26/23 03/27/23
06:59 06:59 06:59
Intake Total 1919 1410 / 1410
Output Total 4900 / 4900 4700 / 4700
Balance -2980 / -2980 -3290 / -3290
Intake:
Oral fluids 1919 1410 / 1410
Output:
Urine, Jon 1100 / 1100
True Urine Output from CBI 3800 / 3800 4700 / 4700
Review of Systems
-
Constitutional: Fatigue
Respiratory: No Symptoms
Cardiac: No Symptoms
Abdomen/GI: No Symptoms
Physical Exam
-
General - no acute distress
Abdomen - soft, non-tender
Genitalia - [address]- urine yellow
[2023-03-26 07:56] LABS: % Basophils 0.7 % (0-2); % Eosinophils 3.9 % (0-6); % Immature Granulocytes 0.6 % (0-0.5); % Lymphocytes 14.7 % (20.5-51.1); % Monocytes 7.1 % (1.7-9.3); Absolute Basophils 0.1 10^3/uL (0-0.2); Absolute Eosinophils 0.3 10^3/uL (0-0.7); Absolute Immature Granulocytes 0.1 10^3/uL (0-0.05); Absolute Lymphocytes 1.2 10^3/uL (1.2-3.4); Absolute Monocytes 0.6 10^3/uL (0.1-0.6); Absolute Neutrophils 6.1 10^3/uL (1.4-6.5); Hematocrit 24.7 % (37.0-47.0); Hemoglobin 8.4 g/dL (12.0-16.0); Mean Corpuscular Volume 88.2 fL (81.0-99.0); Mean Platelet Volume 11.4 fL (7.4-10.4); Nucleated Red Blood Cells % 0 %; Platelet Count 205 10^3/uL (130-400); Red Cell Dist. Width 14.1 % (11.5-14.5); White Blood Cell Count 8.3 10^3/uL (4.8-10.8)
[2023-03-26 07:58] LABS: Glucose - Point of Care 213 mg/dl (70-99)
[2023-03-26] MEDS: ZESTRIL 2.5 MG PO (08:00)
[2023-03-26] MEDS: SYNTHROID 200 MCG PO (08:00)
[2023-03-26] MEDS: NEURONTIN 800 MG PO ×3 (08:00→21:13)
[2023-03-26] MEDS: PROTONIX 40 MG PO (08:00)
[2023-03-26] MEDS: NOVOLOG FLEXPEN-MODERATE RESISTANCE 3 UNITS SC ×3 (08:06→16:46)
[2023-03-26] MEDS: COLACE 200 MG PO (08:06)
[2023-03-26] MEDS: CYMBALTA DELAYED RELEASE 60 MG PO (08:06)
[2023-03-26] MEDS: NOVOLOG FLEXPEN 7 UNITS SC ×2 (08:06→11:57)
[2023-03-26] MEDS: ZINC OXIDE OINTMENT 1 APPLIC TOPICAL ×3 (08:49→21:12)
[2023-03-26 09:30] LABS: Blood Urea Nitrogen 15 mg/dl (7-17); Calcium 8.8 mg/dl (8.4-10.2); Carbon Dioxide 24 mmol/L (22-30); Chloride 95 mmol/L (98-107); Estimated Creatinine Clearance 108 ml/min; Glucose 192 mg/dl (70-99); Potassium 3.9 mmol/L (3.5-5.1); Sodium 130 mmol/L (135-145); eGFR > 60.00
[2023-03-26 11:33] LABS: Glucose - Point of Care 232 mg/dl (70-99)
--- NOTE | 2023-03-26 11:57 | W.PN.HOSP.TC ---
Today's Communication/Plan
-
OR tomm
trend bmp
increase insulin
Assessment / Plan
Assessment / Plan
62-year-old female with recurrent hematuria, this is her third episode, the first 2 she was seen at [place].
#Recurrent gross hematuria likely worsened due to ASA/Brillinta
#Mild acute blood loss anemia 2/2 above
#Normocytic anemia
urinalysis showed no evidence of UTI other causes may need to be considered.�
No mass seen on the CAT scan.
asa/brilinta on hold-awaiting washout
Plan for OR
Hgb from 10.2 to 8.7. Unknown baseline
Iron stores and b12/ and folate wnl.
Pt states, she has tolerated KEFLEX and Penicillin in the past without any difficulties. d/w with urology for pre-op antibiotics based on information given by patient.
Urology recs
#Hyponatremia ?due to CBI-cont to monitor for now. Seems to be fluctuating levels.
#Diabetes mellitus
Hold metformin
continue insulin with meals increase dose to 9u
A1C 7.5
POC 213
#suspected chronic Mild protein caloric malnutrition
#Peripheral vascular disease s/p BL BKA
#Ambulatory dysfunction - PT eval
-Continue her Ultram as usually keep her pain and discomfort controlled while continue senna and Colace.
#Subclinical Hypothyroidism-Cont synthroid. OP repeat TFTs
CODE STATUS full code
DVT prophylaxis BKA and unable to do chemical prophylaxis due to gross hematuria
states received all her care at [place] but want to transfer over to now.
Anticipated Discharge: > 48 hours
Subjective/Interval History
-
Date of Service: March 26, 2023
less tired today
watching tv
on cbi-no hematuria
Objective Data
-
Labs:
Laboratory Results
03/26/23
07:23
WBC 8.3
Hgb 8.4 L
Hct 24.7 L
Plt Count 205
Sodium 130 L
Potassium 3.9
Chloride 95 L
Carbon Dioxide 24
BUN 15
Creatinine 0.5 L
Glucose 192 H
Calcium 8.8
Vital Signs:
Vital Signs
Temp Pulse Resp BP Pulse Ox
97.4 F 69 16 115/58 96
03/26/23 07:10 03/26/23 08:00 03/26/23 07:10 03/26/23 08:00 03/26/23 07:10
I&O
03/25/23 03/26/23 03/27/23
06:59 06:59 06:59
Intake Total 1920 / 1920 1410 / 1410
Output Total 4900 / 4900 4700 / 4700
Balance -2980 / -2980 -3290 / -3290
Physical Exam
-
General: Well Developed, Well Nourished, No Apparent Distress, Comfortable and Obese
HEENT: Normocephalic, Atraumatic, Nose Appears Normal and Ears Appear Normal; Negative Good Dentition
Respiratory: Clear to Auscultation
Cardiac: Regular Rhythm and S1/S2
GI: Soft, Nontender, Nondistended and Normal Bowel Sounds
Genito-urinary: Continuous Bladder Irrigation
Musculoskeletal: No Clubbing, No Cyanosis and Other (bilateral amputees)
Skin: Warm and Dry; Negative Rash
Neuro: Awake, Alert and Oriented
Psych: Calm
Data Reviewed
-
Total Time Spent with Patient (in minutes): 54
[2023-03-26 15:10] VITALS: BP 115/65
--- NOTE | 2023-03-26 16:06 | CM ---
Patient for OR tomorrow.
Plan:[facility] when stable.
[facility]
report# [phone]
[2023-03-26 16:37] LABS: Glucose - Point of Care 202 mg/dl (70-99)
[2023-03-26] MEDS: NOVOLOG FLEXPEN 9 UNITS SC (16:46)
[2023-03-26] MEDS: SENOKOT 17.1999999999999993 MG PO (21:13)
[2023-03-26 21:30] LABS: Glucose - Point of Care 227 mg/dl (70-99)
[2023-03-26 23:05] VITALS: BP 110/59
[2023-03-26] MEDS: NSS 1000 IV (23:18)
[2023-03-27] VITALS (8 sets, daily range): BP systolic 94–108; BP diastolic 54–62
[2023-03-27 06:03] LABS: Glucose - Point of Care 195 mg/dl (70-99)
[2023-03-27] MEDS: NOVOLOG FLEXPEN-MODERATE RESISTANCE 1 UNITS SC (06:05)
[2023-03-27] MEDS: NEURONTIN 800 MG PO ×3 (07:58→21:31)
[2023-03-27] MEDS: NOVOLOG FLEXPEN SC (07:58)
[2023-03-27] MEDS: ZESTRIL 2.5 MG PO (07:59)
[2023-03-27] MEDS: COLACE 200 MG PO (07:59)
[2023-03-27] MEDS: PROTONIX 40 MG PO (08:00)
[2023-03-27] MEDS: SYNTHROID 200 MCG PO (08:00)
[2023-03-27] MEDS: CYMBALTA DELAYED RELEASE 60 MG PO (08:00)
[2023-03-27] MEDS: ZINC OXIDE OINTMENT 1 APPLIC TOPICAL ×3 (08:04→21:31)
[2023-03-27] MEDS: STERILE WATER FOR INJECTION 10 ML IV (08:26)
[2023-03-27] MEDS: ROCEPHIN 1000 MG IV (08:26)
[2023-03-27 08:38] LABS: % Basophils 0.9 % (0-2); % Immature Granulocytes 0.7 % (0-0.5); % Monocytes 7.1 % (1.7-9.3); % Neutrophils 70.3 % (42.2-75.2); Absolute Basophils 0.1 10^3/uL (0-0.2); Absolute Eosinophils 0.3 10^3/uL (0-0.7); Absolute Immature Granulocytes 0.1 10^3/uL (0-0.05); Absolute Lymphocytes 1.1 10^3/uL (1.2-3.4); Absolute Monocytes 0.5 10^3/uL (0.1-0.6); Absolute Neutrophils 4.8 10^3/uL (1.4-6.5); Hematocrit 24.5 % (37.0-47.0); Mean Corp Hgb Conc. 32.7 g/dL (33.0-37.0); Mean Corpuscular Volume 91.8 fL (81.0-99.0); Mean Platelet Volume 11.3 fL (7.4-10.4); Nucleated Red Blood Cells % 0 %; Platelet Count 217 10^3/uL (130-400); Red Blood Cell Count 2.67 10^6/uL (4.20-5.40); Red Cell Dist. Width 14.3 % (11.5-14.5); White Blood Cell Count 6.9 10^3/uL (4.8-10.8)
[2023-03-27 09:13] LABS: Blood Urea Nitrogen 16 mg/dl (7-17); Calcium 8.6 mg/dl (8.4-10.2); Carbon Dioxide 27 mmol/L (22-30); Chloride 97 mmol/L (98-107); Estimated Creatinine Clearance 108 ml/min; Glucose 203 mg/dl (70-99); Sodium 135 mmol/L (135-145); eGFR > 60.00
--- NOTE | 2023-03-27 10:26 | W.PN.HOSP.TC ---
Today's Communication/Plan
-
OR today
restart anti-platelet agents pending urology clearance
Trend Hgb
adjust insulin prn
Assessment / Plan
Assessment / Plan
62-year-old female with recurrent hematuria, this is her third episode, the first 2 she was seen at [place].
#Recurrent gross hematuria likely worsened due to ASA/Brillinta
#Mild acute blood loss anemia 2/2 above
#Normocytic anemia
urinalysis showed no evidence of UTI other causes may need to be considered.�
No mass seen on the CAT scan.
asa/brilinta on hold-awaiting washout
Plan for OR today
Hgb from 10.2 to 8Unknown baseline
Iron stores and b12/ and folate wnl.
Pt states, she has tolerated KEFLEX and Penicillin in the past without any difficulties. d/w with urology for pre-op antibiotics based on information given by patient. Patient tolerated ceftriaxone
Urology recs
#Hyponatremia ?due to CBI-cont to monitor for now. Seems to be fluctuating levels. Na at 135.
#Diabetes mellitus
Hold metformin
continue insulin with meals increase dose to 9u. may require further uptitration. Monitor POC post op and adjust as needed
A1C 7.5
POC 195
#suspected chronic Mild protein caloric malnutrition
#Peripheral vascular disease s/p BL BKA
#Ambulatory dysfunction - PT eval
-Continue her Ultram as usually keep her pain and discomfort controlled while continue senna and Colace.
#Subclinical Hypothyroidism-Cont synthroid. OP repeat TFTs
CODE STATUS full code
DVT prophylaxis BKA and unable to do chemical prophylaxis due to gross hematuria
states received all her care at [place] but want to transfer over to now.
Anticipated Discharge: > 48 hours
Subjective/Interval History
-
Date of Service: March 27, 2023
No complaints overnight
Remains on CBI without any gross hematuria
Remains n.p.o. OR today
Objective Data
-
Labs:
Laboratory Results
03/27/23
07:42
WBC 6.9
Hgb 8.0 L
Hct 24.5 L
Plt Count 217
Sodium 135
Potassium 4.0
Chloride 97 L
Carbon Dioxide 27
BUN 16
Creatinine 0.5 L
Glucose 203 H
Calcium 8.6
Vital Signs:
Vital Signs
Temp Pulse Resp BP Pulse Ox
97.6 F 69 16 108/54 96
03/27/23 07:30 03/27/23 07:30 03/27/23 07:30 03/27/23 07:30 03/27/23 07:30
I&O
03/26/23 03/27/23 03/28/23
06:59 06:59 06:59
Intake Total 1410 / 1410 3431 / 3431
Output Total 4700 / 4700 5600 / 5600
Balance -3290 / -3290 -2169 / -2169
Physical Exam
-
General: Well Developed, Well Nourished, No Apparent Distress, Comfortable and Obese
HEENT: Normocephalic, Atraumatic, Nose Appears Normal and Ears Appear Normal; Negative Good Dentition
Respiratory: Clear to Auscultation
Cardiac: Regular Rhythm and S1/S2
GI: Soft, Nontender, Nondistended and Normal Bowel Sounds
Genito-urinary: Continuous Bladder Irrigation
Musculoskeletal: No Clubbing, No Cyanosis and Other (bilateral amputees)
Skin: Warm and Dry; Negative Rash
Neuro: Awake, Alert and Oriented
Psych: Calm
--- NOTE | 2023-03-27 10:51 | W.IMMPOSTOP ---
Surgical Immed Post Op Note
-
Primary Surgeon:
gaston
Assisting Surgeon:
Pre-op Diagnosis:
xrt cystitis
Post-op Diagnosis:
same
Procedure Performed:
cysto/fulguration
Anesthesia Type:
gen
Specimen / Cultures:
ucx
Estimated Blood Loss:
2cc
Complications:
none
Operative Findings:
no tumor or mass
vaginal exm nl
xrt change in prox urethra and in bladder
no tumor
several sties fulgurated- jon replaced
plan
continue cbi today- if urine clear tomorrow- stop and then remove jon 24hrs later
if no bleeding after jon removal- can restart asa- but would hold brilinta for an additional 4 weeks
check ucx- start macrobid empricially while awaiting cx results
if voiding 24hrs after jon removal would be cleared for discharge back to [facility]
after discharge would try and arrange hyperbaric oxygen as other options are very limited
reviewed findings and plan with
[2023-03-27 11:04] LABS: Glucose - Point of Care 218 mg/dl (70-99)
--- NOTE | 2023-03-27 11:12 | CM ---
Addendum entered by Elinor Loza 03/27/23 15:15:
CBI post op.
Original Note:
Pt in OR today.
Plan:[facility] when stable, patient LTC, has Medicare primary.
[facility]
report# [phone]
[2023-03-27] MEDS: NSS 1000 IV (11:14)
[2023-03-27 12:00] LABS: Glucose - Point of Care 250 mg/dl (70-99)
[2023-03-27] MEDS: NOVOLOG FLEXPEN-MODERATE RESISTANCE 5 UNITS SC ×2 (12:34→16:52)
[2023-03-27] MEDS: NOVOLOG FLEXPEN 9 UNITS SC ×2 (12:34→16:51)
[2023-03-27 16:51] LABS: Glucose - Point of Care 290 mg/dl (70-99)
[2023-03-27] MEDS: MACROBID 100 MG PO (19:46)
[2023-03-27] MEDS: SENOKOT 17.1999999999999993 MG PO (21:31)
[2023-03-27 21:34] LABS: Glucose - Point of Care 306 mg/dl (70-99)
[2023-03-28] MEDS: NSS 1000 IV (06:30)
[2023-03-28 07:20] VITALS: BP 100/52
[2023-03-28 07:26] LABS: Glucose - Point of Care 171 mg/dl (70-99)
--- NOTE | 2023-03-28 07:52 | W.PN.URO.CBU ---
Today's Communication / Plan
-
stop cbi
restart asa
jon out tomorrow if urine clear
Assessment / Plan
-
gross hematuria- due to xrt cystitis
s/p cysto/fulguration
stop cbi today and restart asa
if urine clear tomorrow- remove jon for TOV
on macrobid- f/u ucx
if voiding after jon removal- cleared for discharge urologically- would ocntinue to hold brilinta- then have pt schedule outpt f/u with dr feldman in approx 2-3 weeks to discuss restart of brilinta and discussion of possible HBO
Diagnosis
-
Date of Service: March 28, 2023
-
Patient Diagnosis:
gross hematuria- due to xrt cystitis
s/p cysto/fulguration 03/27
Subjective
-
pt stable
urine clear on minimal cbi
ucx pending
Objective
-
Vital Signs
Temp Pulse Resp BP Pulse Ox
97.4 F 60 17 100/52 99
03/28/23 07:20 03/28/23 07:20 03/28/23 07:20 03/28/23 07:20 03/28/23 07:20
Intake and Output
03/27/23 03/28/23 03/29/23
06:59 06:59 06:59
Intake Total 3431 / 3431 1900 / 1900
Output Total 5600 / 5600 2900 / 2900
Balance -2169 / -2169 -1000 / -1000
Intake:
Oral fluids 2931 / 2931 890 / 890
IV fluids (Total) 500 / 500 1010 / 1010
nss 50 / 50
Output:
True Urine Output from CBI 5600 / 5600 2900 / 2900
Physical Exam
-
General - no acute distress
Abdomen - soft, non-tender
Genitalia - - jon in place
[2023-03-28] MEDS: ASPIR LOW (ENTERIC COATED) 81 MG PO (08:08)
[2023-03-28] MEDS: ZESTRIL 2.5 MG PO (08:08)
[2023-03-28] MEDS: NEURONTIN 800 MG PO ×3 (08:08→21:21)
[2023-03-28] MEDS: MACROBID 100 MG PO (08:08)
[2023-03-28] MEDS: SYNTHROID 200 MCG PO (08:08)
[2023-03-28] MEDS: NOVOLOG FLEXPEN-MODERATE RESISTANCE 1 UNITS SC (08:09)
[2023-03-28] MEDS: NOVOLOG FLEXPEN 9 UNITS SC ×2 (08:09→11:52)
[2023-03-28] MEDS: PROTONIX 40 MG PO (08:09)
[2023-03-28] MEDS: CYMBALTA DELAYED RELEASE 60 MG PO (08:09)
[2023-03-28] MEDS: COLACE 200 MG PO (08:09)
[2023-03-28] MEDS: ZINC OXIDE OINTMENT 1 APPLIC TOPICAL ×3 (08:10→21:21)
[2023-03-28 09:05] LABS: % Basophils 0.4 % (0-2); % Eosinophils 2.9 % (0-6); % Immature Granulocytes 0.9 % (0-0.5); % Lymphocytes 19.1 % (20.5-51.1); % Monocytes 6.6 % (1.7-9.3); % Neutrophils 70.1 % (42.2-75.2); Absolute Eosinophils 0.2 10^3/uL (0-0.7); Absolute Immature Granulocytes 0.1 10^3/uL (0-0.05); Absolute Lymphocytes 1.5 10^3/uL (1.2-3.4); Absolute Monocytes 0.5 10^3/uL (0.1-0.6); Absolute Neutrophils 5.4 10^3/uL (1.4-6.5); Hematocrit 24.4 % (37.0-47.0); Hemoglobin 7.9 g/dL (12.0-16.0); Mean Corp Hgb Conc. 32.4 g/dL (33.0-37.0); Mean Corpuscular Hgb 30.3 pg (27.0-31.0); Mean Corpuscular Volume 93.5 fL (81.0-99.0); Mean Platelet Volume 11.7 fL (7.4-10.4); Nucleated Red Blood Cells % 0 %; Platelet Count 225 10^3/uL (130-400); Red Blood Cell Count 2.61 10^6/uL (4.20-5.40); White Blood Cell Count 7.7 10^3/uL (4.8-10.8)
[2023-03-28 09:29] LABS: Blood Urea Nitrogen 10 mg/dl (7-17); Calcium 8.2 mg/dl (8.4-10.2); Carbon Dioxide 27 mmol/L (22-30); Chloride 99 mmol/L (98-107); Estimated Creatinine Clearance 108 ml/min; Glucose 167 mg/dl (70-99); Potassium 3.9 mmol/L (3.5-5.1); Sodium 135 mmol/L (135-145); eGFR > 60.00
[2023-03-28 11:37] LABS: Glucose - Point of Care 211 mg/dl (70-99)
--- NOTE | 2023-03-28 11:43 | W.PN.HOSP.TC ---
Today's Communication/Plan
-
CBI stopped
asa started
cont abx
trend hgb
increase insulin
Assessment / Plan
Assessment / Plan
62-year-old female with recurrent hematuria, this is her third episode, the first 2 she was seen at [place].
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
#Acute blood loss anemia 2/2 above
#Normocytic anemia
urinalysis showed no evidence of UTI other causes may need to be considered.�
No mass seen on the CAT scan.
Aspirin started and Brilianta held.
s/p cystoscopy on 03/27
Hgb from 10.2 to 7.9 Unknown baseline
Iron stores and b12/ and folate wnl.
Not allergic to cefazolin (tolerated keflex and rocephin)
CBI stopped. jon out tomm and TOV.
Ucx in lab. started on macrobid.
Urology recs
#Hyponatremia ?due to CBI-cont to monitor for now. Seems to be fluctuating levels. Na at 135.
#Diabetes mellitus
Hold metformin
continue insulin with meals increase dose to 11units
A1C 7.5
POC 211
#suspected chronic Mild protein caloric malnutrition
#Peripheral vascular disease s/p BL BKA
#Hx of CVA
# Carotid artery stenosis status post right carotid artery stent placement-aspirin restarted. Prolonged on hold. History of stroke 5 years ago
#Ambulatory dysfunction - PT eval
-Continue her Ultram as usually keep her pain and discomfort controlled while continue senna and Colace.
#Subclinical Hypothyroidism-Cont synthroid. OP repeat TFTs
CODE STATUS full code
DVT prophylaxis BKA and unable to do chemical prophylaxis due to gross hematuria
Anticipated Discharge: Within 24 hours
Subjective/Interval History
-
Date of Service: March 28, 2023
denies any groin pain
CBI stopped
no hematuria
Objective Data
-
Labs:
Laboratory Results
03/28/23
07:54
WBC 7.7
Hgb 7.9 L
Hct 24.4 L
Plt Count 225
Sodium 135
Potassium 3.9
Chloride 99
Carbon Dioxide 27
BUN 10
Creatinine 0.5 L
Glucose 167 H
Calcium 8.2 L
Vital Signs:
Vital Signs
Temp Pulse Resp BP Pulse Ox
97.4 F 60 17 100/52 99
03/28/23 07:20 03/28/23 07:20 03/28/23 07:20 03/28/23 07:20 03/28/23 07:20
I&O
03/27/23 03/28/23 03/29/23
06:59 06:59 06:59
Intake Total 3431 / 3431 1900 / 1900
Output Total 5600 / 5600 2900 / 2900
Balance -2169 / -2169 -1000 / -1000
Physical Exam
-
General: Well Developed, Well Nourished, No Apparent Distress, Comfortable and Obese
HEENT: Normocephalic, Atraumatic, Nose Appears Normal and Ears Appear Normal; Negative Good Dentition
Respiratory: Clear to Auscultation
Cardiac: Regular Rhythm and S1/S2
GI: Soft, Nontender, Nondistended and Normal Bowel Sounds
Genito-urinary: Jon (clear urine ) and Continuous Bladder Irrigation (stopped )
Musculoskeletal: No Clubbing, No Cyanosis and Other (bilateral amputees)
Skin: Warm and Dry; Negative Rash
Neuro: Awake, Alert, Oriented, AO x 3 and No Motor Deficits
Psych: Calm
Data Reviewed
-
Total Time Spent with Patient (in minutes): 54
[2023-03-28] MEDS: NOVOLOG FLEXPEN-MODERATE RESISTANCE 3 UNITS SC (11:52)
--- NOTE | 2023-03-28 12:59 | W.PN.UPDATE ---
Update Note
Progress Note Update
ucx growing gram neg rods
stop macrobid- add rocephin- await final results
[2023-03-28] MEDS: ROCEPHIN 1000 MG IV (14:11)
[2023-03-28] MEDS: STERILE WATER FOR INJECTION 10 ML IV (14:11)
--- NOTE | 2023-03-28 14:18 | CM ---
CM following re: d/c planning
Chart reviewed
Pt discharge anticipated tomorrow 2
Pt continues on abt as directed
Pt followed by urology and jon to be d/c'd tomorrow with voiding trial
Pt is a LTC patent at [facility] and updated clinical information was sent via care port
CM will continue to follow patient and assist with any additional d/c needs as applicable
PLAN; d/c to [facility]
--- NOTE | 2023-03-28 14:42 | PN.CDI ---
CDI
- -
CDI:
Physician Documentation Request
Admit Date: 03/22/23 21:20
Dear Doctor Denny,
Please review the following and provide your response in the progress notes.
Clinical Indicators:
Due to conflicting documentation, please clarify the results of the UA and urine culture
Documentation in the medical record includes administration of Rocephin, 03/28.
PN, 03/27
#urinalysis showed no evidence of UTI other causes may need to be considered.�
PN, 03/28
#cont abx
#Ucx in lab. started on macrobid.
Urology, PN, 03/28
#ucx growing gram neg rods
#stop macrobid- add rocephin- await final results
Please provide in the Progress Notes the diagnosis(es) associated with the medication listed above.
UTI (gram negative), (Please clarify POA or not POA, or unable to determine)
Bacteruria
Other(please specify)
Use of terms such as suspected, likely, concern for, or probable (associated with a specific diagnosis that is being evaluated, monitored, or treated as if it exists) are acceptable and can be coded in the inpatient setting, when documented at the
time of discharge.
Thank you,
Avril Christiansen RN BSN CCDS
CDI Specialist
please contact via tiger text
Please use your independent medical judgment in providing your response.
[2023-03-28 15:17] VITALS: BP 105/48
[2023-03-28 16:46] LABS: Glucose - Point of Care 250 mg/dl (70-99)
[2023-03-28] MEDS: NOVOLOG FLEXPEN 11 UNITS SC (17:07)
[2023-03-28] MEDS: NOVOLOG FLEXPEN-MODERATE RESISTANCE 5 UNITS SC (17:09)
[2023-03-28] MEDS: SENOKOT 17.1999999999999993 MG PO (21:20)
[2023-03-28 22:21] LABS: Glucose - Point of Care 237 mg/dl (70-99)
[2023-03-28 22:27] VITALS: BP 108/58
[2023-03-29 07:15] VITALS: BP 98/54
[2023-03-29 08:18] LABS: Glucose - Point of Care 173 mg/dl (70-99)
[2023-03-29] MEDS: CYMBALTA DELAYED RELEASE 60 MG PO (08:28)
[2023-03-29] MEDS: COLACE 200 MG PO (08:28)
[2023-03-29] MEDS: SYNTHROID 200 MCG PO (08:28)
[2023-03-29] MEDS: ZINC OXIDE OINTMENT 1 APPLIC TOPICAL ×3 (08:29→21:10)
[2023-03-29] MEDS: ASPIR LOW (ENTERIC COATED) 81 MG PO (08:29)
[2023-03-29] MEDS: NEURONTIN 800 MG PO ×3 (08:29→21:10)
[2023-03-29] MEDS: PROTONIX 40 MG PO (08:29)
[2023-03-29] MEDS: NOVOLOG FLEXPEN 11 UNITS SC ×3 (08:59→16:38)
[2023-03-29] MEDS: NOVOLOG FLEXPEN-MODERATE RESISTANCE 1 UNITS SC ×2 (09:00→16:39)
[2023-03-29 09:01] LABS: % Basophils 1.1 % (0-2); % Eosinophils 5.9 % (0-6); % Immature Granulocytes 0.8 % (0-0.5); % Lymphocytes 21.5 % (20.5-51.1); % Monocytes 7.4 % (1.7-9.3); % Neutrophils 63.3 % (42.2-75.2); Absolute Basophils 0.1 10^3/uL (0-0.2); Absolute Eosinophils 0.4 10^3/uL (0-0.7); Absolute Immature Granulocytes 0.1 10^3/uL (0-0.05); Absolute Lymphocytes 1.6 10^3/uL (1.2-3.4); Absolute Monocytes 0.6 10^3/uL (0.1-0.6); Absolute Neutrophils 4.7 10^3/uL (1.4-6.5); Hemoglobin 8.4 g/dL (12.0-16.0); Mean Corp Hgb Conc. 32.3 g/dL (33.0-37.0); Mean Corpuscular Hgb 29.3 pg (27.0-31.0); Mean Corpuscular Volume 90.6 fL (81.0-99.0); Mean Platelet Volume 11.5 fL (7.4-10.4); Nucleated Red Blood Cells % 0 %; Platelet Count 252 10^3/uL (130-400); Red Blood Cell Count 2.87 10^6/uL (4.20-5.40); Red Cell Dist. Width 14.6 % (11.5-14.5); White Blood Cell Count 7.4 10^3/uL (4.8-10.8)
[2023-03-29] MEDS: ZESTRIL PO (09:02)
[2023-03-29 09:37] LABS: Blood Urea Nitrogen 11 mg/dl (7-17); Calcium 8.6 mg/dl (8.4-10.2); Carbon Dioxide 29 mmol/L (22-30); Chloride 99 mmol/L (98-107); Estimated Creatinine Clearance 108 ml/min; Glucose 160 mg/dl (70-99); Potassium 4.3 mmol/L (3.5-5.1); Sodium 139 mmol/L (135-145); eGFR > 60.00
--- NOTE | 2023-03-29 10:37 | W.PN.URO.CBU ---
Today's Communication / Plan
-
remove Jon
abx per micro
if voiding after jon removal- cleared for discharge urologically- would cotinue to hold brilinta- then have pt schedule outpt f/u with dr feldman in approx 2-3 weeks to discuss restarting brilinta and discussion of possible HBO
Assessment / Plan
-
gross hematuria- due to xrt cystitis
s/p cysto/fulguration
--> resolved
Gram - UTI
Diagnosis
-
Date of Service: March 29, 2023
-
Patient Diagnosis:
gross hematuria- due to xrt cystitis
s/p cysto/fulguration 03/27
Gram - bacilli in urine
Subjective
-
agreeable to removal of Jon
Objective
-
Vital Signs
Temp Pulse Resp BP Pulse Ox
97.8 F 66 14 98/54 98
03/29/23 07:15 03/29/23 07:15 03/29/23 07:15 03/29/23 07:15 03/29/23 08:00
Intake and Output
03/28/23 03/29/23 03/30/23
06:59 06:59 06:59
Intake Total 1900 / 1900 720 / 720
Output Total 2900 / 2900 4000 / 4000
Balance -1000 / -1000 -3280 / -3280
Intake:
Oral fluids 890 / 890 720 / 720
IV fluids (Total) 1010 / 1010
nss 50 / 50
Output:
Urine, Jon 3800 / 3800
True Urine Output from CBI 2900 / 2900 200 / 200
Laboratory Results
03/29/23 07:33
03/29/23 07:33
Physical Exam
-
General -no acute distress
Genitalia - Jon with yellow urine
[2023-03-29 11:43] LABS: Glucose - Point of Care 204 mg/dl (70-99)
[2023-03-29] MEDS: NOVOLOG FLEXPEN-MODERATE RESISTANCE 3 UNITS SC (11:49)
--- NOTE | 2023-03-29 12:24 | W.PN.HOSP.TC ---
Today's Communication/Plan
-
Dispo-remove jon. TOV. Await Ucx. IV abx. DC pending culture data and TOV.
Assessment / Plan
Assessment / Plan
62-year-old female with recurrent hematuria, this is her third episode, the first 2 she was seen at [place].
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
#Acute blood loss anemia 2/2 above
#Normocytic anemia
#Gram negative UTI-
urinalysis showed no evidence of UTI other causes may need to be considered.�
No mass seen on the CAT scan.
Aspirin started and Brilianta held.
s/p cystoscopy on 03/27
Hgb from 10.2 to 7.9 Unknown baseline
Iron stores and b12/ and folate wnl.
Not allergic to cefazolin (tolerated keflex and rocephin)
CBI stopped. jon out tomm and TOV.
Ucx in lab. started on rocephin
unclear if POA as ucx as was not send on admission
CBI stopped and remove jon.
Urology recs
#Hyponatremia ?due to CBI-cont to monitor for now. Seems to be fluctuating levels. Na at 139
#Diabetes mellitus
Hold metformin
continue insulin with meals increase dose to 12units
A1C 7.5
POC 204
#suspected chronic Mild protein caloric malnutrition
#Peripheral vascular disease s/p BL BKA
#Hx of CVA
# Carotid artery stenosis status post right carotid artery stent placement-aspirin restarted. Prolonged on hold. History of stroke 5 years ago
#Ambulatory dysfunction - PT eval
-Continue her Ultram as usually keep her pain and discomfort controlled while continue senna and Colace.
#Subclinical Hypothyroidism-Cont synthroid. OP repeat TFTs
CODE STATUS full code
DVT prophylaxis BKA and unable to do chemical prophylaxis due to gross hematuria
Dispo-remove jon. TOV. Await Ucx. IV abx. DC pending culture data and TOV.
Anticipated Discharge: Within 24 hours
Subjective/Interval History
-
Date of Service: March 29, 2023
Urine clear
CBI stopped
Objective Data
-
Labs:
Laboratory Results
03/29/23
07:33
WBC 7.4
Hgb 8.4 L
Hct 26.0 L
Plt Count 252
Sodium 139
Potassium 4.3
Chloride 99
Carbon Dioxide 29
BUN 11
Creatinine 0.5 L
Glucose 160 H
Calcium 8.6
Vital Signs:
Vital Signs
Temp Pulse Resp BP Pulse Ox
97.8 F 66 14 98/54 98
03/29/23 07:15 03/29/23 07:15 03/29/23 07:15 03/29/23 07:15 03/29/23 08:00
I&O
03/28/23 03/29/23 03/30/23
06:59 06:59 06:59
Intake Total 1900 / 1900 720 / 720
Output Total 2900 / 2900 4000 / 4000
Balance -1000 / -1000 -3280 / -3280
Physical Exam
-
General: Well Developed, Well Nourished, No Apparent Distress, Comfortable and Obese
HEENT: Normocephalic, Atraumatic, Nose Appears Normal and Ears Appear Normal; Negative Good Dentition
Respiratory: Clear to Auscultation
Cardiac: Regular Rhythm and S1/S2
GI: Soft, Nontender, Nondistended and Normal Bowel Sounds
Genito-urinary: Jon (clear urine ) and Continuous Bladder Irrigation (stopped )
Musculoskeletal: No Clubbing, No Cyanosis and Other (bilateral amputees)
Skin: Warm and Dry; Negative Rash
Neuro: Awake, Alert, Oriented, AO x 3 and No Motor Deficits
Psych: Calm
[2023-03-29] MEDS: STERILE WATER FOR INJECTION 10 ML IV (14:00)
[2023-03-29] MEDS: ROCEPHIN 1000 MG IV (14:00)
[2023-03-29 15:15] VITALS: BP 112/57
[2023-03-29 16:07] LABS: Glucose - Point of Care 164 mg/dl (70-99)
[2023-03-29] MEDS: SENOKOT 17.1999999999999993 MG PO (21:10)
[2023-03-29 21:22] LABS: Glucose - Point of Care 159 mg/dl (70-99)
[2023-03-29 23:15] VITALS: BP 99/51
--- NOTE | 2023-03-30 06:12 | W.PN.URO.CBU ---
Today's Communication / Plan
-
abx per micro results when available
Assessment / Plan
-
gross hematuria- due to xrt cystitis
s/p cysto/fulguration
--> resolved
Gram - UTI
Diagnosis
-
Date of Service: March 30, 2023
-
Patient Diagnosis:
gross hematuria- due to xrt cystitis
s/p cysto/fulguration 03/27
Gram - bacilli in urine
Subjective
-
voiding, albeit incontinently
Objective
-
Vital Signs
Temp Pulse Resp BP Pulse Ox
97.9 F 72 18 99/51 96
03/29/23 23:15 03/29/23 23:15 03/29/23 23:15 03/29/23 23:15 03/29/23 23:15
Intake and Output
03/28/23 03/29/23 03/30/23
06:59 06:59 06:59
Intake Total 1900 / 1900 720 / 720 840 / 840
Output Total 2900 / 2900 4000 / 4000 450 / 450
Balance -1000 / -1000 -3280 / -3280 390 / 390
Intake:
Oral fluids 890 / 890 720 / 720 840 / 840
IV fluids (Total) 1010 / 1010
nss 50 / 50
Output:
Urine, Scott 3800 / 3800 450 / 450
True Urine Output from CBI 2900 / 2900 200 / 200
Other:
Number of approximated SMALL 1
amounts of urine
How many times incontinent 1
SATURATED amount urine
urine cx -- still pending
Physical Exam
-
General - well developed, well nourished, no acute distress
Chest - clear bilaterally
Abdomen - soft, non-tender, positive bowel sounds, no CVAT, no incisional pain or distention
Genitalia - normal
Rectal - normal
Skin - warm & dry with no rash
Neuro - AOx3, no motor deficits
Extremities - no clubbing, no cyanosis, no edema
Incision - clean, dry
Dressing - clean, dry, intact
[2023-03-30 07:10] VITALS: BP 133/58
[2023-03-30 07:23] LABS: Glucose - Point of Care 172 mg/dl (70-99)
[2023-03-30 08:05] LABS: % Eosinophils 6.2 % (0-6); % Immature Granulocytes 0.6 % (0-0.5); % Lymphocytes 18.2 % (20.5-51.1); % Monocytes 7.8 % (1.7-9.3); % Neutrophils 66.2 % (42.2-75.2); Absolute Basophils 0.1 10^3/uL (0-0.2); Absolute Eosinophils 0.4 10^3/uL (0-0.7); Absolute Lymphocytes 1.2 10^3/uL (1.2-3.4); Absolute Monocytes 0.5 10^3/uL (0.1-0.6); Absolute Neutrophils 4.2 10^3/uL (1.4-6.5); Hematocrit 26.3 % (37.0-47.0); Hemoglobin 8.6 g/dL (12.0-16.0); Mean Corp Hgb Conc. 32.7 g/dL (33.0-37.0); Mean Corpuscular Hgb 29.6 pg (27.0-31.0); Mean Corpuscular Volume 90.4 fL (81.0-99.0); Nucleated Red Blood Cells % 0 %; Platelet Count 264 10^3/uL (130-400); Red Blood Cell Count 2.91 10^6/uL (4.20-5.40); Red Cell Dist. Width 14.6 % (11.5-14.5); White Blood Cell Count 6.3 10^3/uL (4.8-10.8)
[2023-03-30] MEDS: COLACE 200 MG PO (08:12)
[2023-03-30] MEDS: NEURONTIN 800 MG PO ×3 (08:12→21:34)
[2023-03-30] MEDS: CYMBALTA DELAYED RELEASE 60 MG PO (08:12)
[2023-03-30] MEDS: PROTONIX 40 MG PO (08:12)
[2023-03-30] MEDS: ZINC OXIDE OINTMENT 1 APPLIC TOPICAL ×3 (08:12→21:35)
[2023-03-30] MEDS: ASPIR LOW (ENTERIC COATED) 81 MG PO (08:12)
[2023-03-30] MEDS: SYNTHROID 200 MCG PO (08:12)
[2023-03-30] MEDS: ZESTRIL 2.5 MG PO (08:12)
[2023-03-30 08:18] LABS: Blood Urea Nitrogen 9 mg/dl (7-17); Calcium 8.8 mg/dl (8.4-10.2); Carbon Dioxide 32 mmol/L (22-30); Chloride 99 mmol/L (98-107); Estimated Creatinine Clearance 108 ml/min; Glucose 183 mg/dl (70-99); Potassium 4.1 mmol/L (3.5-5.1); Sodium 135 mmol/L (135-145); eGFR > 60.00
[2023-03-30] MEDS: NOVOLOG FLEXPEN 11 UNITS SC ×2 (09:12→11:57)
[2023-03-30] MEDS: NOVOLOG FLEXPEN-MODERATE RESISTANCE 1 UNITS SC ×2 (09:12→16:54)
--- NOTE | 2023-03-30 10:34 | W.PN.HOSP.TC ---
Today's Communication/Plan
-
Switch to meropenem
ID evaluation for antibiotics regimen
Assessment / Plan
Assessment / Plan
62-year-old female with recurrent hematuria, this is her third episode, the first 2 she was seen at [place].
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
#Acute blood loss anemia 2/2 above
#Normocytic anemia
# ESBL UTI
urinalysis showed no evidence of UTI other causes may need to be considered.�
No mass seen on the CAT scan.
Aspirin started and Brilianta held.
s/p cystoscopy on 03/27
Hgb from 10.2 to 7.9 Unknown baseline
Iron stores and b12/ and folate wnl.
Not allergic to cefazolin (tolerated keflex and rocephin)
CBI stopped.
Ceftriaxone stopped and started on meropenem
unclear if POA as ucx as was not send on admission
CBI stopped and remove jon. And voiding without difficulty
Urology recs
ID evaluation for further antibiotics-resistant to multiple antibiotics. Patient allergic to Cipro.
#Hyponatremia ?due to CBI-cont to monitor for now. Seems to be fluctuating levels. Na at 139
#Diabetes mellitus
Hold metformin
continue insulin with meals increase dose to 12units
A1C 7.5
POC 172
#suspected chronic Mild protein caloric malnutrition
#Peripheral vascular disease s/p BL BKA
#Hx of CVA
# Carotid artery stenosis status post right carotid artery stent placement-aspirin restarted. Prolonged on hold. History of stroke 5 years ago
#Ambulatory dysfunction - PT eval
-Continue her Ultram as usually keep her pain and discomfort controlled while continue senna and Colace.
#Subclinical Hypothyroidism-Cont synthroid. OP repeat TFTs
CODE STATUS full code
DVT prophylaxis BKA and unable to do chemical prophylaxis due to gross hematuria
Dispo-ID recs .SNF on dc.
Anticipated Discharge: Within 24 hours
Subjective/Interval History
-
Date of Service: March 30, 2023
cbi stooped
Jon catheter removed
Patient voiding without difficulty
Objective Data
-
Labs:
Laboratory Results
03/30/23
07:37
WBC 6.3
Hgb 8.6 L
Hct 26.3 L
Plt Count 264
Sodium 135
Potassium 4.1
Chloride 99
Carbon Dioxide 32 H
BUN 9
Creatinine 0.5 L
Glucose 183 H
Calcium 8.8
Vital Signs:
Vital Signs
Temp Pulse Resp BP Pulse Ox
97.7 F 69 16 133/58 97
03/30/23 07:10 03/30/23 07:10 03/30/23 07:10 03/30/23 07:10 03/30/23 07:10
I&O
03/29/23 03/30/23 03/31/23
06:59 06:59 06:59
Intake Total 720 / 720 1080 / 1080
Output Total 4000 / 4000 450 / 450
Balance -3280 / -3280 630 / 630
Physical Exam
-
General: Well Developed, Well Nourished, No Apparent Distress, Comfortable and Obese
HEENT: Normocephalic, Atraumatic, Nose Appears Normal and Ears Appear Normal; Negative Good Dentition
Respiratory: Clear to Auscultation
Cardiac: Regular Rhythm and S1/S2
GI: Soft, Nontender, Nondistended and Normal Bowel Sounds
Genito-urinary: Jon (clear urine ) and Continuous Bladder Irrigation (stopped )
Musculoskeletal: No Clubbing, No Cyanosis and Other (bilateral amputees)
Skin: Warm and Dry; Negative Rash
Neuro: Awake, Alert, Oriented, AO x 3 and No Motor Deficits
Psych: Calm
[2023-03-30] MEDS: STERILE WATER FOR INJECTION 10 ML IV (10:36)
[2023-03-30 11:40] LABS: Glucose - Point of Care 312 mg/dl (70-99)
[2023-03-30] MEDS: NOVOLOG FLEXPEN-MODERATE RESISTANCE 7 UNITS SC (11:56)
[2023-03-30 15:15] VITALS: BP 117/60
--- NOTE | 2023-03-30 15:32 | CON.ID ---
Consultation
-
Date/Time Consultation Requested: March 30, 2023 0940
Date/Time Consultation Performed: 03/30/2023 1530
Requesting Provider: Dr. Carlos Baldwin
Performing Provider: Dr. Verona Sotelo
Reason for Consultation: Recurrent gross hematuria, ESBL in urine
Chief Complaint / Past History
Chief Complaint
Recurrent hematuria
History of Present Illness
62-year-old female with diabetes mellitus, history of endometrial cancer status post hysterectomy and radiation approximately 10 years ago, PAD status post bilateral BKA, currently at rehab who has been having recurrent gross hematuria since
December 2022. She has been on aspirin and Brilinta for the past 5 years. She reports she was hospitalized at [facility] without urological intervention. She was treated with antibiotic -she remembered discharged on oral Bactrim. However
gross hematuria persisted. No dysuria. No urinary urgency. No fevers. She came to [facility] March 22. UA negative nitrite negative is Estrace, more than 100 red blood cells. She was receiving CBI for the persistent hematuria.
After Brilinta washout, she was taken to the OR on March 27 status post cystoscopy and fulguration. No tumor found. Radiation changes noted. Urine culture was obtained. The culture resulted as ESBL�Klebsiella. Antibiotic changed to meropenem
today. Since after cystoscopy/fulguration, the gross hematuria has resolved. She feels well.
Past History
Additional Past Medical History:
Diabetes mellitus
Hypertension
PAD status post bilateral BKA
Left carotid artery stent
GERD
History of endometrial cancer status post hysterectomy and radiation
Anxiety/depression
MRSA colonization
[facility] resident
Allergy History:
atorvastatin Allergy (Verified 03/22/23 16:01)
Unknown
ciprofloxacin Allergy (Verified 03/22/23 16:01)
Unknown
clindamycin Allergy (Verified 03/22/23 16:01)
Unknown
oxycodone Allergy (Verified 03/22/23 16:01)
Unknown
Medications Reviewed: Yes
Current Antibiotics:
Meropenem d1
Social History
Tobacco: Non-Smoker
Alcohol: None
Drug: None
Living: [facility]
Family History
Family History: Not Pertinent
Review of Systems
Review of Systems
General: Negative Fever, Chills or Change in Appetite
HEENT: Negative Stiff Neck, Sinus Problems or Headache
Cardiovascular: Negative Chest Pain or Dyspnea
Respiratory: Negative Dyspnea or Cough
Gasteroenterology: Other (no diarrhea); Negative Nausea or Vomiting
Genital / Urological: Negative Dysuria or Flank Pain
Endocrine: Negative Weakness
Neurological: Negative Headache or Dizziness
All systems: All other systems were reviewed and were negative
Vital Signs
Temp Pulse Resp BP Pulse Ox
97.7 F 69 16 133/58 97
03/30/23 07:10 03/30/23 07:10 03/30/23 07:10 03/30/23 07:10 03/30/23 07:10
Physical Exam
Physical Exam
Constitutional: No Acute Distress, Comfortable and Obese
Eyes: No Conjunctival Hemorrhage and Sclera Anicteric
Cardiovascular: Regular Rate and S1/S2
Pulmonary: Clear
Gastrointestinal: Soft, Non Tender, Non Distended and Normal Bowel Sounds
Genito-Urinary: Negative Scott or CVA Tenderness
Neurological: AO x 3
Lab / Diagnostic Study Results
03/30/23 07:37
03/30/23 07:37
Abs Immat Gran (auto) 0.0 10^3/uL (0-0.05) 03/30/23 07:37
Absolute Neuts (auto) 4.2 10^3/uL (1.4-6.5) 03/30/23 07:37
Absolute Lymphs (auto) 1.2 10^3/uL (1.2-3.4) 03/30/23 07:37
Absolute Monos (auto) 0.5 10^3/uL (0.1-0.6) 03/30/23 07:37
Absolute Basos (auto) 0.1 10^3/uL (0-0.2) 03/30/23 07:37
Immature Gran % 0.6 % (0-0.5) H 03/30/23 07:37
Neutrophils % 66.2 % (42.2-75.2) 03/30/23 07:37
Lymphocytes % 18.2 % (20.5-51.1) L 03/30/23 07:37
Monocytes % 7.8 % (1.7-9.3) 03/30/23 07:37
Eosinophils % 6.2 % (0-6) H 03/30/23 07:37
Basophils % 1.0 % (0-2) 03/30/23 07:37
PT 14.3 Sec (11.4-14.6) 03/22/23 15:46
INR 1.08 03/22/23 15:46
Microbiology Results
Micro:
03/27/23 Unknown Urine Culture - Final
Urine Klebsiella pneumoniae-ESBL
03/23/23 14:13 MRSA Screen - Final
Nose Staph aureus MRSA
03/22/23 CT a/p: There are no renal or ureteral calculi. There is no hydronephrosis or hydroureter. The kidneys are normal
Assessment / Plan
# Recurrent gross hematuria due to radiation cystitis
- 03/27/23 s/p cysto, fulguration.
# ESBL-Klebsiella bacteruria
- Suspect colonization rather than source of hematuria
- no po abx option.
-tx short course with Ertapenem 1g IV q24 x 3 doses.
--- NOTE | 2023-03-30 16:03 | CM ---
Plan:[facility] when stable, patient LTC, when medically stable.
[facility]
report# [phone]
[2023-03-30] MEDS: INVANZ 60 MG IV (16:19)
[2023-03-30 16:29] LABS: Glucose - Point of Care 193 mg/dl (70-99)
[2023-03-30] MEDS: NOVOLOG FLEXPEN 14 UNITS SC (16:55)
[2023-03-30 21:11] LABS: Glucose - Point of Care 124 mg/dl (70-99)
[2023-03-30] MEDS: SENOKOT 17.1999999999999993 MG PO (21:35)
[2023-03-30 23:20] VITALS: BP 117/55
[2023-03-31 08:00] VITALS: BP 115/46
[2023-03-31 08:09] LABS: % Basophils 0.8 % (0-2); % Eosinophils 5.9 % (0-6); % Immature Granulocytes 0.6 % (0-0.5); % Lymphocytes 16.4 % (20.5-51.1); % Neutrophils 69.3 % (42.2-75.2); Absolute Basophils 0.1 10^3/uL (0-0.2); Absolute Eosinophils 0.4 10^3/uL (0-0.7); Absolute Lymphocytes 1.2 10^3/uL (1.2-3.4); Absolute Monocytes 0.5 10^3/uL (0.1-0.6); Absolute Neutrophils 4.9 10^3/uL (1.4-6.5); Hematocrit 26.9 % (37.0-47.0); Hemoglobin 8.7 g/dL (12.0-16.0); Mean Corp Hgb Conc. 32.3 g/dL (33.0-37.0); Mean Corpuscular Hgb 30.2 pg (27.0-31.0); Mean Corpuscular Volume 93.4 fL (81.0-99.0); Nucleated Red Blood Cells % 0 %; Platelet Count 269 10^3/uL (130-400); Red Blood Cell Count 2.88 10^6/uL (4.20-5.40); Red Cell Dist. Width 14.5 % (11.5-14.5); White Blood Cell Count 7.1 10^3/uL (4.8-10.8)
[2023-03-31 08:54] LABS: Blood Urea Nitrogen 14 mg/dl (7-17); Calcium 8.6 mg/dl (8.4-10.2); Carbon Dioxide 32 mmol/L (22-30); Chloride 101 mmol/L (98-107); Estimated Creatinine Clearance 108 ml/min; Glucose 188 mg/dl (70-99); Potassium 4.2 mmol/L (3.5-5.1); Sodium 136 mmol/L (135-145); eGFR > 60.00
[2023-03-31 09:14] LABS: Glucose - Point of Care 223 mg/dl (70-99)
[2023-03-31] MEDS: NOVOLOG FLEXPEN-MODERATE RESISTANCE 3 UNITS SC (09:24)
[2023-03-31] MEDS: NOVOLOG FLEXPEN 14 UNITS SC ×3 (09:25→17:23)
[2023-03-31] MEDS: ASPIR LOW (ENTERIC COATED) 81 MG PO (09:26)
[2023-03-31] MEDS: PROTONIX 40 MG PO (09:26)
[2023-03-31] MEDS: ZESTRIL 2.5 MG PO (09:26)
[2023-03-31] MEDS: COLACE 200 MG PO (09:26)
[2023-03-31] MEDS: NEURONTIN 800 MG PO ×3 (09:26→21:09)
[2023-03-31] MEDS: CYMBALTA DELAYED RELEASE 60 MG PO (09:26)
[2023-03-31] MEDS: SYNTHROID 200 MCG PO (09:27)
[2023-03-31] MEDS: ZINC OXIDE OINTMENT 1 APPLIC TOPICAL ×3 (09:27→21:10)
--- NOTE | 2023-03-31 11:46 | W.PN.HOSP.TC ---
Today's Communication/Plan
-
Monitor vital signs and see plan
Continue ertapenem
Monitor hemoglobin
Assessment / Plan
Assessment / Plan
62-year-old female with recurrent hematuria, this is her third episode, the first 2 she was seen at [place].
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
#Acute blood loss anemia 2/2 above
#Normocytic anemia
# ESBL UTI
urinalysis showed no evidence of UTI other causes may need to be considered.�
No mass seen on the CAT scan.
Aspirin started and Brilianta held.
s/p cystoscopy on 03/27
Hgb from 10.2 to 7.9 Unknown baseline
Iron stores and b12/ and folate wnl.
Not allergic to cefazolin (tolerated keflex and rocephin); started on ertapenem
CBI stopped.
unclear if POA as ucx as was not send on admission
CBI stopped and remove jon. And voiding without difficulty
Urology recs
ID evaluation for further antibiotics-resistant to multiple antibiotics. Patient allergic to Cipro.
#Hyponatremia ?due to CBI-cont to monitor for now. Seems to be fluctuating levels. Resolved
#Diabetes mellitus
Hold metformin
continue insulin with meals increase dose to 12units
A1C 7.5
POC 172
#suspected chronic Mild protein caloric malnutrition
#Peripheral vascular disease s/p BL BKA
#Hx of CVA
# Carotid artery stenosis status post right carotid artery stent placement-aspirin restarted. Prolonged on hold. History of stroke 5 years ago
#Ambulatory dysfunction - PT eval
-Continue her Ultram as usually keep her pain and discomfort controlled while continue senna and Colace.
#Subclinical Hypothyroidism-Cont synthroid. OP repeat TFTs
CODE STATUS full code
DVT prophylaxis BKA and unable to do chemical prophylaxis due to gross hematuria
General: Well Developed, Well Nourished, No Apparent Distress, Comfortable and Obese
HEENT: Normocephalic, Atraumatic, Nose Appears Normal and Ears Appear Normal; Negative Good Dentition
Respiratory: Clear to Auscultation
Cardiac: Regular Rhythm and S1/S2
GI: Soft, Nontender, Nondistended and Normal Bowel Sounds
Genito-urinary: Jon (clear urine ) and Continuous Bladder Irrigation (stopped )
Musculoskeletal: No Clubbing, No Cyanosis and Other (bilateral amputees)
Skin: Warm and Dry; Negative Rash
Neuro: Awake, Alert, Oriented, AO x 3 and No Motor Deficits
Psych: Calm
Anticipated Discharge: 24 - 48 hours
Subjective/Interval History
-
Date of Service: March 31, 2023
Patient denies pain
Objective Data
-
Labs:
Laboratory Results
03/31/23
07:39
WBC 7.1
Hgb 8.7 L
Hct 26.9 L
Plt Count 269
Sodium 136
Potassium 4.2
Chloride 101
Carbon Dioxide 32 H
BUN 14
Creatinine 0.5 L
Glucose 188 H
Calcium 8.6
Vital Signs:
Vital Signs
Temp Pulse Resp BP Pulse Ox
97.8 F 67 16 115/46 97
03/31/23 08:00 03/31/23 08:00 03/31/23 08:00 03/31/23 08:00 03/31/23 08:00
I&O
03/30/23 03/31/23 04/01/23
06:59 06:59 06:59
Intake Total 1080 / 1080 1260 / 1260
Output Total 450 / 450
Balance 630 / 630 1260 / 1260
[2023-03-31 12:01] LABS: Glucose - Point of Care 130 mg/dl (70-99)
[2023-03-31] MEDS: NOVOLOG FLEXPEN-MODERATE RESISTANCE SC (12:19)
[2023-03-31 16:00] VITALS: BP 112/81
[2023-03-31] MEDS: INVANZ 60 MG IV (16:20)
[2023-03-31 17:01] LABS: Glucose - Point of Care 166 mg/dl (70-99)
[2023-03-31] MEDS: NOVOLOG FLEXPEN-MODERATE RESISTANCE 1 UNITS SC (17:23)
[2023-03-31] MEDS: SENOKOT 17.1999999999999993 MG PO (21:09)
[2023-03-31 21:25] LABS: Glucose - Point of Care 174 mg/dl (70-99)
[2023-03-31 23:20] VITALS: BP 105/59
[2023-04-01 07:00] VITALS: BP 110/59
[2023-04-01 08:03] LABS: % Basophils 0.9 % (0-2); % Eosinophils 6.2 % (0-6); % Immature Granulocytes 0.5 % (0-0.5); % Lymphocytes 18.3 % (20.5-51.1); % Monocytes 7.4 % (1.7-9.3); % Neutrophils 66.7 % (42.2-75.2); Absolute Basophils 0.1 10^3/uL (0-0.2); Absolute Eosinophils 0.4 10^3/uL (0-0.7); Absolute Lymphocytes 1.2 10^3/uL (1.2-3.4); Absolute Monocytes 0.5 10^3/uL (0.1-0.6); Absolute Neutrophils 4.3 10^3/uL (1.4-6.5); Hematocrit 27.6 % (37.0-47.0); Hemoglobin 8.7 g/dL (12.0-16.0); Mean Corp Hgb Conc. 31.5 g/dL (33.0-37.0); Mean Corpuscular Hgb 29.6 pg (27.0-31.0); Mean Corpuscular Volume 93.9 fL (81.0-99.0); Mean Platelet Volume 11.2 fL (7.4-10.4); Nucleated Red Blood Cells % 0 %; Platelet Count 277 10^3/uL (130-400); Red Blood Cell Count 2.94 10^6/uL (4.20-5.40); Red Cell Dist. Width 14.5 % (11.5-14.5); White Blood Cell Count 6.5 10^3/uL (4.8-10.8)
--- NOTE | 2023-04-01 08:18 | W.PN.URO.CBU ---
Today's Communication / Plan
-
continue antibx per ID
cleared for discharge urologically when medically stable
Assessment / Plan
-
gross hematuria- due to xrt cystitis
s/p cysto/fulguration
ESBL UTI- antibx therapy per ID
cleared for discharge urologically
continue asa- hold brilinta until outpt f/kyleith dr feldman
Diagnosis
-
Date of Service: April 01, 2023
-
Patient Diagnosis:
gross hematuria- due to xrt cystitis
s/p cysto/fulguration 03/27
ESBL Klebsiella UTI
Subjective
-
pt c/o back pain
jon out- incontinent- urine clear
hgb stable
on antibx per ID
on asa
Objective
-
Vital Signs
Temp Pulse Resp BP Pulse Ox
97.8 F 67 18 105/59 96
03/31/23 23:20 03/31/23 23:20 03/31/23 23:20 03/31/23 23:20 03/31/23 23:20
Intake and Output
03/31/23 04/01/23 04/02/23
06:59 06:59 06:59
Intake Total 1260 / 1260 1400 / 1400
Output Total 600 / 600
Balance 1260 / 1260 800 / 800
Intake:
Oral fluids 1200 / 1200 1340 / 1340
IV piggybacks 60 / 60 60 / 60
Output:
Urine, Voided 600 / 600
Other:
Number of approximated MODERATE 1 1
amounts of urine
Number of approximated LARGE 2
amounts of urine
How many times incontinent 1
MODERATE amount urine
How many times incontinent 1 1
SATURATED amount urine
Laboratory Results
04/01/23 07:13
Physical Exam
-
General - no acute distress
Abdomen - soft, non-tender
[2023-04-01 08:37] LABS: ALT (SGPT) < 10 U/L (0-35); AST (SGOT) 15 U/L (14-36); Albumin 3.2 g/dl (3.5-5.0); Alkaline Phosphatase 97 U/L (38-126); Blood Urea Nitrogen 17 mg/dl (7-17); Carbon Dioxide 27 mmol/L (22-30); Chloride 98 mmol/L (98-107); Estimated Creatinine Clearance 108 ml/min; Glucose 183 mg/dl (70-99); Potassium 4.2 mmol/L (3.5-5.1); Sodium 134 mmol/L (135-145); Total Bilirubin 0.3 mg/dl (0.2-1.3); eGFR > 60.00
[2023-04-01 08:45] LABS: Glucose - Point of Care 219 mg/dl (70-99)
[2023-04-01] MEDS: SYNTHROID 200 MCG PO (10:16)
[2023-04-01] MEDS: COLACE 200 MG PO (10:17)
[2023-04-01] MEDS: NEURONTIN 800 MG PO ×3 (10:18→21:11)
[2023-04-01] MEDS: ASPIR LOW (ENTERIC COATED) 81 MG PO (10:24)
[2023-04-01] MEDS: PROTONIX 40 MG PO (10:24)
[2023-04-01] MEDS: CYMBALTA DELAYED RELEASE 60 MG PO (10:25)
[2023-04-01] MEDS: ZESTRIL 2.5 MG PO (10:25)
[2023-04-01] MEDS: NOVOLOG FLEXPEN-MODERATE RESISTANCE 3 UNITS SC (10:25)
[2023-04-01] MEDS: NOVOLOG FLEXPEN 14 UNITS SC ×3 (10:27→17:00)
[2023-04-01] MEDS: ZINC OXIDE OINTMENT 1 APPLIC TOPICAL ×3 (10:28→21:12)
--- NOTE | 2023-04-01 10:43 | W.PN.HOSP.TC ---
Today's Communication/Plan
-
Monitor vital signs see plan
Continue with ertapenem
Hopeful discharge tomorrow
Assessment / Plan
Assessment / Plan
62-year-old female with recurrent hematuria, this is her third episode, the first 2 she was seen at [place].
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
#Acute blood loss anemia 2/2 above
#Normocytic anemia
# ESBL UTI
urinalysis showed no evidence of UTI other causes may need to be considered.�
No mass seen on the CAT scan.
Aspirin started and Brilianta held.
s/p cystoscopy on 03/27
Hgb from 10.2 to 7.9 Unknown baseline
Iron stores and b12/ and folate wnl.
Not allergic to cefazolin (tolerated keflex and rocephin); started on ertapenem
CBI stopped.
unclear if POA as ucx as was not send on admission
CBI stopped and remove jon. And voiding without difficulty
Urology recs
ID evaluation for further antibiotics-resistant to multiple antibiotics. Patient allergic to Cipro.
#Hyponatremia ?due to CBI-cont to monitor for now. Seems to be fluctuating levels. Resolved
#Diabetes mellitus
Hold metformin
continue insulin with meals increase dose to 12units
A1C 7.5
POC 172
#suspected chronic Mild protein caloric malnutrition
#Peripheral vascular disease s/p BL BKA
#Hx of CVA
# Carotid artery stenosis status post right carotid artery stent placement-aspirin restarted. Prolonged on hold. History of stroke 5 years ago
#Ambulatory dysfunction - PT eval
-Continue her Ultram as usually keep her pain and discomfort controlled while continue senna and Colace.
#Subclinical Hypothyroidism-Cont synthroid. OP repeat TFTs
CODE STATUS full code
DVT prophylaxis BKA and unable to do chemical prophylaxis due to gross hematuria
General: Well Developed, Well Nourished, No Apparent Distress, Comfortable and Obese
HEENT: Normocephalic, Atraumatic, Nose Appears Normal and Ears Appear Normal; Negative Good Dentition
Respiratory: Clear to Auscultation
Cardiac: Regular Rhythm and S1/S2
GI: Soft, Nontender, Nondistended and Normal Bowel Sounds
Genito-urinary: Jon (clear urine ) and Continuous Bladder Irrigation (stopped )
Musculoskeletal: No Clubbing, No Cyanosis and Other (bilateral amputees)
Skin: Warm and Dry; Negative Rash
Neuro: Awake, Alert, Oriented, AO x 3 and No Motor Deficits
Psych: Calm
Anticipated Discharge: Within 24 hours
Subjective/Interval History
-
Date of Service: April 01, 2023
denies pain
Objective Data
-
Labs:
Laboratory Results
04/01/23
07:13
WBC 6.5
Hgb 8.7 L
Hct 27.6 L
Plt Count 277
Sodium 134 L
Potassium 4.2
Chloride 98
Carbon Dioxide 27
BUN 17
Creatinine 0.5 L
Glucose 183 H
Calcium 9.0
Total Bilirubin 0.3
AST 15
ALT < 10
Alkaline Phosphatase 97
Vital Signs:
Vital Signs
Temp Pulse Resp BP Pulse Ox
97.8 F 70 16 110/59 95
04/01/23 07:00 04/01/23 07:00 04/01/23 07:00 04/01/23 07:00 04/01/23 07:00
I&O
03/31/23 04/01/23 04/02/23
06:59 06:59 06:59
Intake Total 1260 / 1260 1400 / 1400
Output Total 600 / 600
Balance 1260 / 1260 800 / 800
--- NOTE | 2023-04-01 11:55 | W.PN.ID1 ---
Date of Service
Date of Service: April 01, 2023
Today's Communication
Can dc after last dose of Ertapenem today.
Assessment / Plan
# Recurrent gross hematuria due to radiation cystitis
- 03/27/23 s/p cysto, fulguration.
# ESBL-Klebsiella bacteruria
- Suspect colonization rather than source of hematuria
- no po abx option.
- Today is last dose of Ertapenem (day 3).
# Additional Past Medical History:
Diabetes mellitus
Hypertension
PAD status post bilateral BKA
Left carotid artery stent
GERD
History of endometrial cancer status post hysterectomy and radiation
Anxiety/depression
MRSA colonization
SNF resident
Subjective / Review of Systems
No further hematuria.
Vital Signs / Physical Exam
Vital Signs
Vital Signs
Temp Pulse Resp BP Pulse Ox
97.8 F 70 16 110/59 95
04/01/23 07:00 04/01/23 07:00 04/01/23 07:00 04/01/23 07:00 04/01/23 07:00
Physical Exam
Constitutional: No Acute Distress and Comfortable
Pulmonary: Clear
Gastrointestinal: Soft, Non Tender, Non Distended and Normal Bowel Sounds
Genito-Urinary: Negative CVA Tenderness
Neurological: AO x 3
Objective Data
Lab Data
Lab Results
04/01/23 07:13
04/01/23 07:13
PT 14.3 Sec (11.4-14.6) 03/22/23 15:46
INR 1.08 03/22/23 15:46
APTT 28.9 Sec (23.4-35.0) 03/22/23 15:46
Estimated Creat Clear 108 ml/min 04/01/23 07:13
Total Bilirubin 0.3 mg/dl (0.2-1.3) 04/01/23 07:13
AST 15 U/L (14-36) 04/01/23 07:13
ALT < 10 U/L (0-35) 04/01/23 07:13
Alkaline Phosphatase 97 U/L (38-126) 04/01/23 07:13
Most recent labs reviewed.
Micro Results:
03/27/23 Unknown Urine Culture - Final
Urine Klebsiella pneumoniae-ESBL
03/23/23 14:13 MRSA Screen - Final
Nose Staph aureus MRSA
03/22/23 CT a/p: There are no renal or ureteral calculi. There is no hydronephrosis or hydroureter. The kidneys are normal
Care Review
Plan reviewed with: Physician (Dr. Gilmar Quinonez)
[2023-04-01 12:29] LABS: Glucose - Point of Care 262 mg/dl (70-99)
[2023-04-01] MEDS: NOVOLOG FLEXPEN-MODERATE RESISTANCE 5 UNITS SC (12:56)
[2023-04-01] MEDS: INVANZ 60 MG IV (12:58)
[2023-04-01] MEDS: FLUSH (NSS) 1 FLUSH IV (12:58)
[2023-04-01 15:28] VITALS: BP 122/58
[2023-04-01 16:52] LABS: Glucose - Point of Care 145 mg/dl (70-99)
[2023-04-01] MEDS: NOVOLOG FLEXPEN-MODERATE RESISTANCE SC (16:58)
[2023-04-01] MEDS: SENOKOT 17.1999999999999993 MG PO (21:12)
[2023-04-01 22:21] LABS: Glucose - Point of Care 171 mg/dl (70-99)
[2023-04-01 23:30] VITALS: BP 130/88
[2023-04-02] MEDS: SYNTHROID 200 MCG PO (06:39)
[2023-04-02 07:58] LABS: Glucose - Point of Care 167 mg/dl (70-99)
[2023-04-02 08:05] VITALS: BP 110/51
[2023-04-02 08:45] LABS: % Basophils 0.7 % (0-2); % Eosinophils 6.7 % (0-6); % Immature Granulocytes 0.4 % (0-0.5); % Lymphocytes 15.3 % (20.5-51.1); % Monocytes 7.1 % (1.7-9.3); % Neutrophils 69.8 % (42.2-75.2); Absolute Basophils 0.1 10^3/uL (0-0.2); Absolute Eosinophils 0.5 10^3/uL (0-0.7); Absolute Monocytes 0.5 10^3/uL (0.1-0.6); Absolute Neutrophils 4.7 10^3/uL (1.4-6.5); Hematocrit 27.7 % (37.0-47.0); Hemoglobin 8.9 g/dL (12.0-16.0); Mean Corp Hgb Conc. 32.1 g/dL (33.0-37.0); Mean Corpuscular Hgb 29.9 pg (27.0-31.0); Mean Platelet Volume 11.1 fL (7.4-10.4); Nucleated Red Blood Cells % 0 %; Platelet Count 285 10^3/uL (130-400); Red Blood Cell Count 2.98 10^6/uL (4.20-5.40); Red Cell Dist. Width 14.6 % (11.5-14.5); White Blood Cell Count 6.7 10^3/uL (4.8-10.8)
[2023-04-02] MEDS: ASPIR LOW (ENTERIC COATED) 81 MG PO (08:55)
[2023-04-02] MEDS: NEURONTIN 800 MG PO (08:55)
[2023-04-02] MEDS: COLACE 200 MG PO (08:55)
[2023-04-02] MEDS: PROTONIX 40 MG PO (08:55)
[2023-04-02] MEDS: ZESTRIL 2.5 MG PO (08:56)
[2023-04-02] MEDS: CYMBALTA DELAYED RELEASE 60 MG PO (08:56)
[2023-04-02] MEDS: ZINC OXIDE OINTMENT 1 APPLIC TOPICAL (08:56)
[2023-04-02] MEDS: GLUCOPHAGE 1000 MG PO (09:00)
[2023-04-02 09:30] LABS: ALT (SGPT) 10 U/L (0-35); AST (SGOT) 15 U/L (14-36); Albumin 3.2 g/dl (3.5-5.0); Alkaline Phosphatase 94 U/L (38-126); Blood Urea Nitrogen 18 mg/dl (7-17); Carbon Dioxide 26 mmol/L (22-30); Chloride 99 mmol/L (98-107); Estimated Creatinine Clearance 108 ml/min; Glucose 172 mg/dl (70-99); Potassium 4.3 mmol/L (3.5-5.1); Sodium 135 mmol/L (135-145); Total Bilirubin 0.3 mg/dl (0.2-1.3); Total Protein 5.9 g/dl (6.3-8.2); eGFR > 60.00
[2023-04-02] MEDS: NOVOLOG FLEXPEN-MODERATE RESISTANCE 1 UNITS SC (10:22)
[2023-04-02] MEDS: NOVOLOG FLEXPEN 14 UNITS SC ×2 (10:23→13:12)
--- NOTE | 2023-04-02 10:25 | CM ---
Addendum entered by Elinor Loza 04/02/23 10:33:
IMM reviewed and signed.
Original Note:
Patient cleared for discharge today.
Siobhan liaison for [facility] updated, [facility] updated.
Patient will require ambulance transport.
Plan: [facility] today.
[facility]
report# [phone]
--- NOTE | 2023-04-02 11:22 | W.PN.HOSP.TC ---
Today's Communication/Plan
-
dc to snf
monitor poc
Assessment / Plan
Assessment / Plan
62-year-old female with recurrent hematuria, this is her third episode, the first 2 she was seen at [place].
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
#Acute blood loss anemia 2/2 above
#Normocytic anemia
# ESBL UTI
urinalysis showed no evidence of UTI other causes may need to be considered.�
No mass seen on the CAT scan.
Aspirin started and Brilianta held.
s/p cystoscopy on 03/27
Hgb from 10.2 to 7.9 Unknown baseline
Iron stores and b12/ and folate wnl.
Not allergic to cefazolin (tolerated keflex and rocephin); started on ertapenem completed course during hospitalization.
CBI stopped.
unclear if POA as ucx as was not send on admission
CBI stopped and remove jon. And voiding without difficulty
Urology recs
ID evaluation for further antibiotics-resistant to multiple antibiotics. Patient allergic to Cipro.
#Hyponatremia ?due to CBI-cont to monitor for now. Seems to be fluctuating levels. Resolved
#Diabetes mellitus
restart metformin
continue insulin with meals increase dose to 14units
non compliant with diet NH
A1C 7.5
POC 167
#suspected chronic Mild protein caloric malnutrition
#Peripheral vascular disease s/p BL BKA
#Hx of CVA
# Carotid artery stenosis status post right carotid artery stent placement-aspirin restarted. Prolonged on hold. History of stroke 5 years ago
#Ambulatory dysfunction - PT eval
-DC Ultram.
#Subclinical Hypothyroidism-Cont synthroid. OP repeat TFTs
CODE STATUS full code
DVT prophylaxis BKA and unable to do chemical prophylaxis due to gross hematuria
General: Well Developed, Well Nourished, No Apparent Distress, Comfortable and Obese
HEENT: Normocephalic, Atraumatic, Nose Appears Normal and Ears Appear Normal; Negative Good Dentition
Respiratory: Clear to Auscultation
Cardiac: Regular Rhythm and S1/S2
GI: Soft, Nontender, Nondistended and Normal Bowel Sounds
Musculoskeletal: No Clubbing, No Cyanosis and Other (bilateral amputees)
Skin: Warm and Dry; Negative Rash
Neuro: Awake, Alert, Oriented, AO x 3 and No Motor Deficits
Psych: Calm
More than 30 minutes spent in discharge including
Final examination of the patient
Summarizing hospital stay
Instructions for continuing care to all relevant caregivers
Preparation of discharge records, prescriptions, and referral forms
Total time spent (in minutes): 50
Anticipated Discharge: Today
Subjective/Interval History
-
Date of Service: April 02, 2023
Remains afebrile
tolerating diet
Objective Data
-
Labs:
Laboratory Results
04/02/23
07:37
WBC 6.7
Hgb 8.9 L
Hct 27.7 L
Plt Count 285
Sodium 135
Potassium 4.3
Chloride 99
Carbon Dioxide 26
BUN 18 H
Creatinine 0.5 L
Glucose 172 H
Calcium 9.0
Total Bilirubin 0.3
AST 15
ALT 10
Alkaline Phosphatase 94
Vital Signs:
Vital Signs
Temp Pulse Resp BP Pulse Ox
98 F 62 16 110/51 96
04/02/23 08:05 04/02/23 08:05 04/02/23 08:05 04/02/23 08:05 04/02/23 08:05
I&O
04/01/23 04/02/23 04/03/23
06:59 06:59 06:59
Intake Total 1400 / 1400 1540 / 1540
Output Total 600 / 600 702 / 702
Balance 800 / 800 838 / 838
--- NOTE | 2023-04-02 11:27 | W.DCSUMMARY ---
Discharge Summary
Discharge Data
Date of Admission: 03/22/23
Date of Discharge: 04/02/23
-
Pending Results: No
Hospital Course
62-year-old female past medical history of peripheral arterial disease status post BKA, diabetes mellitus uncontrolled, carotid artery stenosis status post right-sided stent 4 to 5 years ago at [facility], CVA amatory dysfunction, subclinical
hypothyroidism who is presenting from [facility] with previous hematuria. Aspirin and Brilinta was held. Patient was started on CBI. Hematuria started to improve. After Brilinta washout patient went to the operating room and was found patient
had radiation cystitis. Urine culture was sent from the operating room which grew ESBL. Per infectious disease ESBL is likely secondary to colonization and and not a cause for hematuria. Patient was started on aspirin without any hematuria.
Patient with persistent hyperglycemia and NovoLog dose was increased to 14 units. Metformin was restarted. Patient completed course with ertapenem in the hospital. On discharge plan will be to hold Brilinta until patient is seen in the office of
Dr. Minor Patient be discharged back to jail.
Discharge Plan
-
Patient Disposition: [facility]/SNF
Discharge Diagnosis/Procedures: Recurrent gross hematuria likely worsened due to ASA/Brillinta 2/2 radiation cystitis
Acute blood loss anemia 2/2 above
ESBL-Klebsiella bacteruria
Hyponatremia
Condition: Fair
Diet: Diabetic, Carb Controlled
Activity: With assistance and As tolerated
Driving Restrictions: No driving
Blood Work: Repeat thyroid function testing in 4 weeks
Referrals:
Connor Mcmillan DO [Family Provider] - in less than 1 week
Ramesh Minor Jr., MD [Active] - in two to three weeks
Prescriptions:
Continued
sennosides [senna] 8.6 mg Tablet
17.2 mg PO HS
acetaminophen [Tylenol] 325 mg Tablet
650 mg PO Q6HPRN PRN (Reason: mild pain)
polyethylene glycol 3350 [Miralax] 17 gram Powder In Packet
17 g PO [id number] PRN (Reason: constipation )
gabapentin 400 mg Capsule
800 mg PO TID
sertraline 100 mg Tablet
100 mg PO DAILY
dextromethorphan-guaifenesin [Tussin DM] 10-100 mg/5 mL Syrup
10 ml PO Q4HPRN PRN (Reason: cough )
zinc oxide 20 % Ointment
1 applic TOPICAL TID
magnesium hydroxide [Milk of Magnesia] 400 mg/5 mL Suspension
2,400 mg PO [id number] PRN (Reason: if no bm by 3rd day)
bisacodyl [Dulcolax (bisacodyl)] 10 mg Suppository
10 mg AR DAILYPRN PRN (Reason: if no bm aftr mom)
ferrous sulfate 325 mg (65 mg iron) Tablet
325 mg PO DAILY
metformin 1,000 mg Tablet
1,000 mg PO BID
docusate sodium [Colace] 100 mg Capsule
200 mg PO DAILY
aspirin 81 mg Tablet,Chewable
81 mg PO DAILY
vitamin B complex Tablet
1 tab PO DAILY
levothyroxine [Synthroid] 200 mcg Tablet
200 mcg PO DAILY
lisinopril 2.5 mg Tablet
2.5 mg PO DAILY
magnesium L-lactate 84 mg Tablet Extended Release
168 mg PO BID
duloxetine [Cymbalta] 60 mg Capsule,Delayed Release(Dr/Ec)
60 mg PO DAILY
omeprazole 20 mg Tablet,Delayed Release (Dr/Ec)
20 mg PO DAILY
cholecalciferol (vitamin D3) [Vitamin D3] 50 mcg (2,000 unit) Capsule
50 mcg PO DAILY
Changed
insulin lispro [Humalog KwikPen Insulin] 100 unit/mL Insulin Pen
14 unit SC AC Qty: 0 0RF
Held
Brilinta 90 mg Tablet
90 mg PO BID
Hold Instructions: Resume on 04/30/23. Hold till outpatient evaluation by Dr. Minor
Discontinued
loperamide 2 mg Tablet
2 mg PO Q6HPRN PRN (Reason: diarrhea)
tramadol 50 mg Tablet
50 mg PO Q6HPRN PRN (Reason: severe pain )
Fleet Enema 19-7 gram/118 mL Enema
118 ml AR DAILYPRN PRN (Reason: if no bm after dulcolax)
Discharge Orders:
Discharge Patient (As Directed); Ordered 04/02/23
Ordered By: Carlos Baldwin
[2023-04-02 12:25] LABS: Glucose - Point of Care 130 mg/dl (70-99)
[2023-04-02] MEDS: NOVOLOG FLEXPEN-MODERATE RESISTANCE SC (13:10)
== END 2023-04-02 16:41 | DRG 669 ==
LOC: 4 WEST ACU 21:20
PROVIDERS: Internal Medicine; Physician Assistant; ADMITTING PHYSICIAN Internal Medicine; ATTENDING PHYSICIAN Hospitalist; CONSULT PHYSICIAN Internal Medicine Infectious Disease; CONSULT PHYSICIAN Specialist; EMERGENCY PHYSICIAN Student in an Organized Health Care Education/Training Program; FAMILY PHYSICIAN Student in an Organized Health Care Education/Training Program
PROC: 0T5B8ZZ Destruction of Bladder, Via Natural or Artificial Opening Endoscopic (ICD-10-PCS; 2023-03-27)
PROC: 0T5C8ZZ Destruction of Bladder Neck, Via Natural or Artificial Opening Endoscopic (ICD-10-PCS; 2023-03-27)
DX: N30.41 Irradiation cystitis with hematuria (principal); D62 Acute posthemorrhagic anemia; E11.52 Type 2 diabetes mellitus with diabetic peripheral angiopathy with gangrene; E87.1 Hypo-osmolality and hyponatremia; E44.1 Mild protein-calorie malnutrition; Z89.511 Acquired absence of right leg below knee; Z89.512 Acquired absence of left leg below knee; Z79.82 Long term (current) use of aspirin; I10 Essential (primary) hypertension; K21.9 Gastro-esophageal reflux disease without esophagitis; Z79.4 Long term (current) use of insulin; Z79.84 Long term (current) use of oral hypoglycemic drugs; F32.A Depression, unspecified; F41.9 Anxiety disorder, unspecified; Z90.710 Acquired absence of both cervix and uterus; E03.8 Other specified hypothyroidism; T39.015A Adverse effect of aspirin, initial encounter
CPT/HCPCS: 51701; 51702; 51798; 74176; 80048; 80053; 81003; 81015; 82607; 82728; 82746; 82962; 83036; 83540; 83550; 83735; 84439; 84443; 85014; 85018; 85025; 85027; 85610; 85730; 87070; 87077; 87086; 87147; 87186; 99285; J1335